=== PATIENT | female | born 1960 | race Caucasian/White ===

== ENCOUNTER 2020-02-23 14:22 | Outpatient (REF) | payer OTHER, SELFPAY | END 2020-02-23 14:23 | disposition home or self-care (01) | LOC: HO.LAB 14:22 | PROVIDERS: Visit Provider Internal Medicine | DX: Z20.828 Contact with and (suspected) exposure to other viral communicable diseases (principal) | CPT/HCPCS: C9803; U0003 ==

== ENCOUNTER 2020-06-29 17:30 | Emergency (ER) | payer OTHER, SELFPAY ==
--- NOTE | ~2020-06-29 | XR_ITS ---
EXAMINATION: XR CHEST CLINICAL INFORMATION: Chest pain COMPARISON: Chest x-ray and left RIBS 02/28/2019 TECHNIQUE: Frontal view of the chest was obtained. 6:01 PM FINDINGS: No significant abnormality is noted involving the heart, lungs, mediastinum, bony thorax or soft tissues. XR/XR chest 1V IMPRESSION: Unremarkable examination.
[2020-06-29 17:45] VITALS: BP 169/71; PULSE 64; RESP 16; TEMP 36.7; O2SAT 100; BMI 27.3
--- NOTE | 2020-06-29 17:48 | ECG_ITS ---
Test Reason : CHEST PAIN Blood Pressure : / mmHG Vent. Rate : 065 BPM Atrial Rate : 065 BPM P-R Int : 148 ms QRS Dur : 076 ms QT Int : 414 ms P-R-T Axes : -03 -28 014 degrees QTc Int : 430 ms Normal sinus rhythm Minimal voltage criteria for LVH, may be normal variant Junctional ST depression, probably normal Borderline ECG When compared with ECG of 30-AUG-2015 22:46, No significant change was found Referred By: Generic ED Physician Electronically Signed By:MASOUD CESAR MD
[2020-06-29 18:19] LABS: MANUAL DIFF FLAG NO
[2020-06-29 18:22] LABS: Basophils Absolute Auto 0.1 X10*3/uL (0.0-0.2); Basophils Percent Auto 0.9 % (0-2); Eosinophils Absolute Auto 0.5 X10*3/uL (0.0-0.4); Eosinophils Percent Auto 6.1 % (0-4); Hematocrit 37.1 % (37-47); Hemoglobin 11.6 g/dl (12.0-16.0); Imm Gran Abs Auto 0.01 X10*3/uL (0.00-0.03); Imm Gran Pct Auto 0.1 % (0.0-0.4); Lymphocytes Absolute Auto 3.8 X10*3/uL (1.2-4.9); Lymphocytes Percent Auto 44.2 % (20-40); Mean Corpuscular HGB Conc 31.3 g/dl (31.0-35.0); Mean Corpuscular Hemoglobin 25.1 pg (27.0-33.0); Mean Corpuscular Volume 80.3 fL (80-98); Mean Platelet Volume 9.7 fL (9.4-12.3); Monocytes Absolute Auto 0.6 X10*3/uL (0.1-1.2); Monocytes Percent Auto 7.2 % (2-11); Neutrophils Absolute Auto 3.6 X10*3/uL (2.0-8.3); Neutrophils Percent Auto 41.5 % (45-73); Platelet Count 300 X10*3/uL (160-400); Red Blood Count 4.62 X10*6/uL (4.20-5.50); Red Cell Distribution Width 13.8 % (11.0-16.0); White Blood Count 8.6 X10*3/uL (4.8-10.8)
[2020-06-29 18:43] LABS: Anion Gap 10 (12-20); Blood Urea Nitrogen 16 mg/dL (9-16); Calcium 9.4 mg/dL (8.4-10.2); Carbon Dioxide 30 mmol/L (22-29); Chloride 105 mmol/L (96-108); Creatinine Clr Calc Pharmacy 70.7; Estimated Glomerular Filt Rate > 60; Glucose Random 97 mg/dL (60-115); Potassium 3.3 mmol/L (3.3-5.1); Sodium 142 mmol/L (135-145)
[2020-06-29 18:50] LABS: Troponin-I High Sensitivity < 3.5 ng/L (<3.5-17.0)
[2020-06-29 20:47] VITALS: BP 167/82; PULSE 58; RESP 18; TEMP 36.5; O2SAT 100
--- NOTE | 2020-06-29 21:36 | ED.CHESTPAIN ---
HPI - Chest Pain General Chief Complaint: Chest Pain Stated Complaint: cp Time Seen by Provider: 06/29/20 21:36 Source: patient Mode of arrival: ambulatory Limitations: no limitations History of Present Illness HPI narrative: Patient with history of hypertension no known coronary artery disease been complaining of mid chest pain for last 10 days complaint: chest pain Timing of current episode: episodic Prior episodes: No Onset: during rest Pain location: substernal Pain radiation: none Severity: mild Quality: aching Relieving factors: nothing Exacerbating factors: palpation Treatment prior to arrival: none Related Data Previous Rx's Medication Instructions Recorded ascorbic acid (vitamin C) 500 mg 500 mg PO DAILY #30 tab 03/09/20 tablet ferrous sulfate 325 mg (65 mg 325 mg PO DAILY #30 tab 04/21/20 iron) tablet hydrochlorothiazide 12.5 mg tablet 12.5 mg PO DAILY #30 tab 04/21/20 Allergies Allergy/AdvReac Type Severity Reaction Status Date / Time No Known Allergies Allergy Unverified 12/29/19 14:56 [No Known Allergies*] Review of Systems Review of Systems: Constitutional : No Weight loss, No Fever, No Chills ENT/Mouth : No sore throat, No Rhinorrhea Eyes: No Eye Pain, No Swelling Cardiovascular : ++ Chest Pain, no palpitations Respiratory : No Cough, No Sputum, no shortness of breath Gastrointestinal : no Nausea, No Vomiting, No Diarrhea, No abdominal Pain, no black stools Genitourinary : No Dysuria, No Urinary Frequency Musculoskeletal : No joint pain, No Myalgias, No Joint Swelling Skin : No Skin Lesions, No rash Neuro : No Weakness, No Numbness, No Dizziness, No Headache Psych : No Anxiety/Panic, No Depression Heme/Lymph: No Bruising, No Lymphadenopathy Endocrine : No Polyuria, No Polydipsia All other systems reviewed and are negative PMFSH Past Medical History Medical History Anemia HTN (hypertension) Social History Social History Advance Directives: No Advance Directives Information Provided: Yes Physical Exam Vital Signs: Vital Signs: Last Vital Signs Temp 97.7 F 06/29/20 20:47 Pulse 58 06/29/20 20:47 Resp 18 06/29/20 20:47 BP 167/82 H 06/29/20 20:47 Pulse Ox 100 06/29/20 20:47 Body Mass Index 27.3 Appearance: Alert. Oriented X3. No acute distress. Eyes: Pupils equal, round and reactive to light. ENT: Pharynx normal. Neck: Normal inspection. Neck supple. CVS: Normal heart rate and rhythm. Pulses normal. Chest wall tenderness++ Respiratory: No respiratory distress. Breath sounds normal. Abdomen: Soft and nontender. Bowel sounds are present, no mass palpable, no CVA tenderness Skin: Skin warm and dry. Normal skin color. Normal skin turgor. Extremities: No lower extremity edema. Neuro: Oriented X 3. No motor deficit. No sensory deficit. MDM - Chest Pain MDM Narrative Medical decision making narrative: Patient atypical chest pain for more than 10 days EKG without any acute ST T wave changes pain reproducible on palpation high sensitive troponin is negative patient was to follow with PCP for evaluation Differential Diagnosis Differential diagnosis: Likely unstable angina pectoris and atypical chest pain Medical Records Data Attestation: I reviewed the patient's medical records. Lab Data Attestation: I reviewed the patient's lab results. Result diagrams: 06/29/20 18:10 06/29/20 18:10 Labs: Lab Results 06/29/20 06/29/20 06/29/20 Range/Units 18:10 18:10 18:10 WBC 8.6 (4.8-10.8) X10*3/uL RBC 4.62 (4.20-5.50) X10*6/uL Hgb 11.6 L (12.0-16.0) g/dl Hct 37.1 (37-47) % MCV 80.3 (80-98) fL MCH 25.1 L (27.0-33.0) pg MCHC 31.3 (31.0-35.0) g/dl RDW 13.8 (11.0-16.0) % Plt Count 300 (160-400) X10*3/uL MPV 9.7 (9.4-12.3) fL Immature Gran % (Auto) 0.1 (0.0-0.4) % Neut % (Auto) 41.5 L (45-73) % Lymph % (Auto) 44.2 H (20-40) % [place] % (Auto) 7.2 (2-11) % Eos % (Auto) 6.1 H (0-4) % Baso % (Auto) 0.9 (0-2) % Lymph # (Auto) 3.8 (1.2-4.9) X10*3/uL [place] # (Auto) 0.6 (0.1-1.2) X10*3/uL Eos # (Auto) 0.5 H (0.0-0.4) X10*3/uL Baso # (Auto) 0.1 (0.0-0.2) X10*3/uL Abs Immat Gran (auto) 0.01 (0.00-0.03) X10*3/uL Absolute Neuts (auto) 3.6 (2.0-8.3) X10*3/uL Absolute Nucleated RBC 0.000 (0.0-0.012) X10*3/uL Nucleated RBC % (auto) 0.0 (0.0-0.2) /100WBC Hold Blue Top SEE NOTE Sodium 142 (135-145) mmol/L Potassium 3.3 (3.3-5.1) mmol/L Chloride 105 (96-108) mmol/L Carbon Dioxide 30 H (22-29) mmol/L Anion Gap 10 L (12-20) BUN 16 (9-16) mg/dL Creatinine 0.73 (0.5-1.4) mg/dL Estim Creat Clear Calc 70.7 Estimated GFR > 60 Random Glucose 97 (60-115) mg/dL Calcium 9.4 (8.4-10.2) mg/dL Troponin I High Sens (<3.5-17.0) ng/L 06/29/20 Range/Units 18:10 WBC (4.8-10.8) X10*3/uL RBC (4.20-5.50) X10*6/uL Hgb (12.0-16.0) g/dl Hct (37-47) % MCV (80-98) fL MCH (27.0-33.0) pg MCHC (31.0-35.0) g/dl RDW (11.0-16.0) % Plt Count (160-400) X10*3/uL MPV (9.4-12.3) fL Immature Gran % (Auto) (0.0-0.4) % Neut % (Auto) (45-73) % Lymph % (Auto) (20-40) % [place] % (Auto) (2-11) % Eos % (Auto) (0-4) % Baso % (Auto) (0-2) % Lymph # (Auto) (1.2-4.9) X10*3/uL [place] # (Auto) (0.1-1.2) X10*3/uL Eos # (Auto) (0.0-0.4) X10*3/uL Baso # (Auto) (0.0-0.2) X10*3/uL Abs Immat Gran (auto) (0.00-0.03) X10*3/uL Absolute Neuts (auto) (2.0-8.3) X10*3/uL Absolute Nucleated RBC (0.0-0.012) X10*3/uL Nucleated RBC % (auto) (0.0-0.2) /100WBC Hold Blue Top Sodium (135-145) mmol/L Potassium (3.3-5.1) mmol/L Chloride (96-108) mmol/L Carbon Dioxide (22-29) mmol/L Anion Gap (12-20) BUN (9-16) mg/dL Creatinine (0.5-1.4) mg/dL Estim Creat Clear Calc Estimated GFR Random Glucose (60-115) mg/dL Calcium (8.4-10.2) mg/dL Troponin I High Sens < 3.5 (<3.5-17.0) ng/L ECG Data ECG #1: Attestation: I personally reviewed and interpreted this ECG as follows: Interpretation: Normal sinus rhythm heart rate 65 beats per minute normal intervals normal axis LVH no acute ST T wave changes no acute ischemia Discharge Plan Discharge Clinical Impression: Atypical chest pain Patient Disposition: Home, Self-Care Instructions: Chest Pain (ED) Additional Instructions: Take baby aspirin 81 mg daily Follow-up with your PCP for further evaluation including stress test Prescriptions: No Action ascorbic acid (vitamin C) [Vitamin C] 500 mg tablet 500 mg PO DAILY Qty: 30 RF: 5 hydrochlorothiazide 12.5 mg tablet 12.5 mg PO DAILY Qty: 30 RF: 5 ferrous sulfate 325 mg (65 mg iron) tablet 325 mg PO DAILY Qty: 30 RF: 5
== END 2020-06-29 22:10 | disposition home or self-care (01) ==
PROVIDERS: Emergency Provider Internal Medicine; PCP Internal Medicine
DX: R07.89 Other chest pain (principal); I10 Essential (primary) hypertension; Z79.899 Other long term (current) drug therapy
CPT/HCPCS: 36415; 71045; 80048; 84484; 85025; 93005; 99283; 99284

== ENCOUNTER → 2020-07-19 10:05 | Outpatient (REF) | payer OTHER, SELFPAY ==
--- NOTE | 2020-07-19 10:07 | CA_ITS ---
Acquisition Time: 2020-07-19 10:22:06 Total Exercise Time: 00:05:00 Test Indications: HTN Medications: SEE CHART Protocol: NITA Max HR: 155 BPM 95% of Pred: 163 BPM Max BP: 158/100 mmHG Max Work Load: 7.0 METS Exercise stress test with exercise 5 min of Nita protocol, without anginal symptoms, without arrythmia, with normotensive response to exercise, without EKG changes meeting criteria for ischemia. Test reviewed with Dr Garza. Referred By: Han Marcano Overread By: KEN DAVIS
== END ==
LOC: HO.CARD 10:05
PROVIDERS: Visit Provider Internal Medicine
DX: R07.89 Other chest pain (principal)
CPT/HCPCS: 93016; 93017; 93018

== ENCOUNTER 2020-08-06 11:35 | Outpatient (REF) | payer OTHER, SELFPAY ==
[2020-08-06 13:01] LABS: COVID-19 Test Negative (Negative); IDNOW Serial# 55D5AD1C
== END 2020-08-06 11:36 | disposition home or self-care (01) ==
LOC: HO.LAB 11:35
PROVIDERS: Visit Provider Internal Medicine
DX: Z20.822 Contact with and (suspected) exposure to COVID-19 (principal)
CPT/HCPCS: 36415; 87635; C9803

== ENCOUNTER 2020-09-29 09:52 | Outpatient (REF) | payer OTHER, SELFPAY ==
--- NOTE | ~2020-09-29 | XR_ITS ---
EXAMINATION: XR FOOT, RIGHT CLINICAL INFORMATION: Pain right foot. COMPARISON: None TECHNIQUE: AP, lateral, and oblique views of the right foot. FINDINGS: There is a transverse fracture across the head of the proximal phalanx of the fifth toe with no intra-articular extension. Alignment is essentially anatomic. Callus formation is present. No other abnormality. XR/XR foot RT min 3V IMPRESSION: Healing fracture proximal phalanx right fifth toe in near-anatomic alignment.
--- NOTE | ~2020-09-29 | MM_ITS ---
EXAMINATION: MM SCREENING DIGITAL BREAST TOMOSYNTHESIS, BILATERAL CLINICAL INFORMATION: Screening. Asymptomatic. The lifetime risk of breast cancer based on the Tyrer-Cuzick Model is 6%. COMPARISON: Mammography: 05/25/2019, 05/20/2019, 05/14/2018, 03/28/2014 TECHNIQUE: Digital breast tomosynthesis is performed in both the craniocaudal and mediolateral oblique views along with computer-aided detection (CAD). Synthesized 2D images are generated from the tomosynthesis. FINDINGS: There are scattered areas of fibroglandular density (ACR BI-RADS breast composition Category b). There are no significant masses, abnormal calcifications, or other abnormalities. Parenchymal pattern is similar to prior studies. No developing density. No significant changes. MM/MM tomosynthesis screening BI IMPRESSION: No mammographic evidence of malignancy. ASSESSMENT: BI-RADS 1: Negative RECOMMENDATION: Routine annual mammography screening. This patient's information was entered into a reminder system with a target due date for their next mammogram.
[2020-09-29 11:00] LABS: MANUAL DIFF FLAG NO
[2020-09-29 11:04] LABS: Basophils Absolute Auto 0.1 X10*3/uL (0.0-0.2); Basophils Percent Auto 0.8 % (0-2); Eosinophils Absolute Auto 0.5 X10*3/uL (0.0-0.4); Eosinophils Percent Auto 6.7 % (0-4); Hematocrit 36.5 % (37-47); Hemoglobin 11.6 g/dl (12.0-16.0); Imm Gran Abs Auto 0.01 X10*3/uL (0.00-0.03); Imm Gran Pct Auto 0.1 % (0.0-0.4); Immature Retic Fraction 3.2 % (3.0-15.9); Lymphocytes Absolute Auto 2.4 X10*3/uL (1.2-4.9); Lymphocytes Percent Auto 33.6 % (20-40); Mean Corpuscular HGB Conc 31.8 g/dl (31.0-35.0); Mean Corpuscular Hemoglobin 25.2 pg (27.0-33.0); Mean Corpuscular Volume 79.3 fL (80-98); Mean Platelet Volume 9.9 fL (9.4-12.3); Monocytes Absolute Auto 0.5 X10*3/uL (0.1-1.2); Monocytes Percent Auto 6.9 % (2-11); Neutrophils Absolute Auto 3.8 X10*3/uL (2.0-8.3); Neutrophils Percent Auto 51.9 % (45-73); Platelet Count 286 X10*3/uL (160-400); Red Cell Distribution Width 14.5 % (11.0-16.0); Retic HGB Equivalent 28.9 pg (30.0-35.0); Reticulocytes Absolute 0.045 X10*6/uL (0.026-0.095); White Blood Count 7.3 X10*3/uL (4.8-10.8)
[2020-09-29 11:26] LABS: Alanine Aminotransferase 13 U/L (0-31); Albumin Level 4.1 g/dL (3.5-5.0); Alkaline Phosphatase 79 U/L (39-117); Anion Gap 11 (12-20); Aspartate Amino Transferase 23 U/L (5-31); Bilirubin Total 0.5 mg/dL (0.0-1.0); Blood Urea Nitrogen 14 mg/dL (9-16); Calcium 9.6 mg/dL (8.4-10.2); Carbon Dioxide 27 mmol/L (22-29); Chloride 109 mmol/L (96-108); Cholesterol 229 mg/dL; Estimated Glomerular Filt Rate > 60; Glucose Random 87 mg/dL (60-115); HDL Cholesterol 72 mg/dL; Iron 56 mcg/dL (30-160); LDL Cholesterol Calculated 145 mg/dl; Percent Iron Saturation 22 % (15-50); Potassium 4.2 mmol/L (3.3-5.1); Sodium 143 mmol/L (135-145); Total Iron Binding Capacity 256 mcg/dL (228-428); Total Protein 7.2 g/dL (6.5-8.0); Triglycerides 62 mg/dL; Unsaturated Iron Binding 200 ug/dL
[2020-09-29 11:51] LABS: Thyroid Stimulating Hormone 1.66 uIU/mL (0.32-4.0); Vitamin D 25-OH Total 15.5 ng/mL (>30)
[2020-09-29 12:29] LABS: Ferritin 165 ng/mL (10-250)
[2020-10-01 09:07] LABS: Folate 15.6 ng/mL (> or = 4.0); Vitamin B12 365 pg/mL (200-900)
== END 2020-09-29 09:53 | disposition home or self-care (01) ==
LOC: HO.MAMMO 09:52
PROVIDERS: PCP Internal Medicine; Visit Provider Internal Medicine
DX: Z12.31 Encounter for screening mammogram for malignant neoplasm of breast (principal); M79.674 Pain in right toe(s); D64.9 Anemia, unspecified; E78.00 Pure hypercholesterolemia, unspecified; I10 Essential (primary) hypertension
CPT/HCPCS: 36415; 73630; 77063; 77067; 80053; 80061; 82306; 82607; 82728; 82746; 83540; 84439; 84443; 85025; 85045

== ENCOUNTER → 2020-10-18 10:59 | Outpatient (BNVA) | payer OTHER, SELFPAY | PROVIDERS: PCP Internal Medicine; Visit Provider Dietitian, Registered | DX: E78.00 Pure hypercholesterolemia, unspecified (principal) | CPT/HCPCS: 97802 ==

== ENCOUNTER → 2020-11-29 09:13 | Outpatient (BNVA) | payer OTHER, SELFPAY | PROVIDERS: PCP Internal Medicine; Visit Provider Dietitian, Registered | DX: E78.00 Pure hypercholesterolemia, unspecified (principal); I10 Essential (primary) hypertension; D50.9 Iron deficiency anemia, unspecified; F41.8 Other specified anxiety disorders | CPT/HCPCS: 97803 ==

== ENCOUNTER 2020-12-17 11:05 | Emergency (ER) | payer OTHER, SELFPAY ==
--- NOTE | ~2020-12-17 | XR_ITS ---
EXAMINATION: XR SHOULDER, LEFT CLINICAL INFORMATION: Shoulder pain COMPARISON: X-ray 04/22/2013 TECHNIQUE: Three views of the left shoulder. FINDINGS: No visible acute fracture or dislocation. Mild to moderate acromioclavicular arthritis. Glenohumeral joint space is maintained. No abnormal soft tissue calcifications. XR/XR shoulder LT min 2V IMPRESSION: Mild to moderate acromioclavicular arthritis. No visible acute fracture.
[2020-12-17 11:25] VITALS: BP 173/80; PULSE 76; RESP 16; TEMP 36.6; O2SAT 97; BMI 27.3
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
[2020-12-17] MEDS: Ketorolac Tromethamine 15 MG/ML VIAL 30 MG IM (14:47)
[2020-12-17 15:03] VITALS: BP 152/88; PULSE 76; RESP 16; TEMP 36.6; O2SAT 98
== END 2020-12-17 15:06 | disposition home or self-care (01) ==
PROVIDERS: Emergency Provider Emergency Medicine; PCP Internal Medicine
DX: M75.02 Adhesive capsulitis of left shoulder (principal); M25.512 Pain in left shoulder; I10 Essential (primary) hypertension; E78.00 Pure hypercholesterolemia, unspecified; Z79.899 Other long term (current) drug therapy; Z79.82 Long term (current) use of aspirin
CPT/HCPCS: 73030; 96372; 99284; J1885

== ENCOUNTER → 2020-12-25 14:38 | Outpatient (BNVA) | payer OTHER, SELFPAY | PROVIDERS: Visit Provider Physician Assistant | DX: M75.102 Unspecified rotator cuff tear or rupture of left shoulder, not specified as traumatic (principal) | CPT/HCPCS: 99202 ==

== ENCOUNTER 2021-02-22 14:58 | Outpatient (REF) | payer OTHER, SELFPAY | END 2021-02-22 14:59 | disposition home or self-care (01) | LOC: HO.LNP 14:58 | PROVIDERS: Visit Provider Physician Assistant Medical | DX: R51.9 Headache, unspecified (principal); Z20.822 Contact with and (suspected) exposure to COVID-19 | CPT/HCPCS: U0003; U0005 ==

== ENCOUNTER → 2021-02-28 09:01 | Outpatient (BNVA) | payer OTHER, SELFPAY | PROVIDERS: Visit Provider Dietitian, Registered | DX: E78.00 Pure hypercholesterolemia, unspecified (principal) | CPT/HCPCS: 97803 ==

== ENCOUNTER 2021-03-13 18:04 | Outpatient (REF) | payer OTHER, SELFPAY ==
[2021-03-13 18:55] LABS: Influenza A PCR NEGATIVE (Negative); Influenza B PCR NEGATIVE (Negative); Resp Syncy Virus RNA Qual PCR NEGATIVE (Negative); SARS COV2 PCR INHOUSE NEGATIVE (Negative)
== END 2021-03-13 18:05 | disposition home or self-care (01) ==
LOC: HO.LNP 18:04
PROVIDERS: Visit Provider Family Medicine
DX: Z20.822 Contact with and (suspected) exposure to COVID-19 (principal); B34.9 Viral infection, unspecified
CPT/HCPCS: 0241U

== ENCOUNTER 2021-04-15 10:45 | Outpatient (REF) | payer OTHER, SELFPAY | END 2021-04-15 10:46 | disposition home or self-care (01) | LOC: HO.WFDLDS 10:45 | PROVIDERS: Visit Provider Internal Medicine | DX: Z20.822 Contact with and (suspected) exposure to COVID-19 (principal) | CPT/HCPCS: C9803; U0003; U0005 ==

== ENCOUNTER 2021-04-22 18:03 | Outpatient (REF) | payer OTHER, SELFPAY | END 2021-04-22 18:04 | disposition home or self-care (01) | LOC: HO.LNP 18:03 | PROVIDERS: Visit Provider Hospitalist | DX: R51.9 Headache, unspecified (principal); Z20.822 Contact with and (suspected) exposure to COVID-19 | CPT/HCPCS: U0003; U0005 ==

== ENCOUNTER → 2021-05-09 15:01 | Outpatient (BNVA) | payer OTHER, SELFPAY | PROVIDERS: PCP Internal Medicine; Referring Provider Internal Medicine; Visit Provider Nurse Practitioner Family | DX: Z01.818 Encounter for other preprocedural examination (principal); K21.9 Gastro-esophageal reflux disease without esophagitis | CPT/HCPCS: 99202 ==

== ENCOUNTER 2021-10-10 11:27 | Outpatient (REF) | payer OTHER, SELFPAY ==
[2021-10-10 11:39] LABS: MANUAL DIFF FLAG NO
[2021-10-10 12:11] LABS: Basophils Absolute Auto 0.1 X10*3/uL (0.0-0.2); Basophils Percent Auto 0.9 % (0-2); Eosinophils Absolute Auto 0.3 X10*3/uL (0.0-0.4); Eosinophils Percent Auto 4.9 % (0-4); Hematocrit 36.4 % (37.0-47.0); Hemoglobin 11.4 g/dl (12.0-16.0); Imm Gran Abs Auto 0.02 X10*3/uL (0.00-0.03); Imm Gran Pct Auto 0.3 % (0.0-0.4); Immature Retic Fraction 5.4 % (3.0-15.9); Lymphocytes Absolute Auto 2.5 X10*3/uL (1.2-4.9); Lymphocytes Percent Auto 35.3 % (20-40); Mean Corpuscular HGB Conc 31.3 g/dl (31.0-35.0); Mean Corpuscular Hemoglobin 24.9 pg (27.0-33.0); Mean Corpuscular Volume 79.6 fL (80.0-98.0); Mean Platelet Volume 10.2 fL (9.4-12.3); Monocytes Absolute Auto 0.5 X10*3/uL (0.1-1.2); Monocytes Percent Auto 7.6 % (2-11); Neutrophils Absolute Auto 3.6 x10*3/uL (2.0-8.3); Platelet Count 297 X10*3/uL (160-400); Red Blood Count 4.57 X10*6/uL (4.20-5.50); Red Cell Distribution Width 14.6 % (11.0-16.0); Retic HGB Equivalent 29.5 pg (30.0-35.0); Reticulocyte Percent 1.2 % (0.5-1.8); Reticulocytes Absolute 0.055 X10*6/uL (0.026-0.095)
[2021-10-10 12:34] LABS: Alanine Aminotransferase 12 U/L (0-31); Albumin Level 4.1 g/dL (3.5-5.0); Alkaline Phosphatase 76 U/L (39-117); Anion Gap 12 (12-20); Aspartate Amino Transferase 19 U/L (5-31); Bilirubin Total 0.5 mg/dL (0.0-1.0); Blood Urea Nitrogen 12 mg/dL (9-16); Carbon Dioxide 26 mmol/L (22-29); Chloride 108 mmol/L (96-108); Cholesterol 227 mg/dL; Estimated Glomerular Filt Rate > 60; Glucose Random 84 mg/dL (60-115); HDL Cholesterol 64 mg/dL; Iron 106 mcg/dL (30-160); LDL Cholesterol Calculated 152 mg/dl; Percent Iron Saturation 43 % (15-50); Potassium 4.2 mmol/L (3.3-5.1); Sodium 142 mmol/L (135-145); Total Iron Binding Capacity 246 mcg/dL (228-428); Total Protein 7.1 g/dL (6.5-8.0); Triglycerides 55 mg/dL; Unsaturated Iron Binding 140 ug/dL
[2021-10-10 12:57] LABS: Ferritin 244 ng/mL (10-250); Thyroid Stimulating Hormone 1.82 uIU/mL (0.32-4.0); Vitamin D 25-OH Total 15.4 ng/mL (>30)
[2021-10-10 13:20] LABS: Folate 18.7 ng/mL (> or = 4.0); Vitamin B12 432 pg/mL (200-900)
== END 2021-10-10 11:28 | disposition home or self-care (01) ==
LOC: HO.LAB 11:27
PROVIDERS: PCP Internal Medicine; Visit Provider Internal Medicine
DX: D64.9 Anemia, unspecified (principal); E78.00 Pure hypercholesterolemia, unspecified; I10 Essential (primary) hypertension; Z20.822 Contact with and (suspected) exposure to COVID-19
CPT/HCPCS: 36415; 80053; 80061; 82306; 82607; 82728; 82746; 83540; 84439; 84443; 85025; 85045; U0005

== ENCOUNTER 2021-10-17 10:50 | Outpatient (REF) | payer OTHER, SELFPAY ==
--- NOTE | ~2021-10-17 | MM_ITS ---
EXAMINATION: MM SCREENING DIGITAL BREAST TOMOSYNTHESIS, BILATERAL CLINICAL INFORMATION: Screening. Asymptomatic. The lifetime risk of breast cancer based on the Tyrer-Cuzick Model is 6%. COMPARISON: Mammography: 09/29/2020, 05/25/2019, 05/20/2019, 05/14/2018; ultrasound left breast 05/25/2019 TECHNIQUE: Digital breast tomosynthesis is performed in both the craniocaudal and mediolateral oblique views along with computer-aided detection (CAD). Synthesized 2D images are generated from the tomosynthesis. FINDINGS: There are scattered areas of fibroglandular density (ACR BI-RADS breast composition Category b). There are no significant masses, abnormal calcifications, or other abnormalities. Parenchymal pattern is similar to prior studies. No developing density or architectural abnormality. MM/MM tomosynthesis screening BI IMPRESSION: No mammographic evidence of malignancy. ASSESSMENT: BI-RADS 1: Negative RECOMMENDATION: Routine annual mammography screening. This patient's information was entered into a reminder system with a target due date for their next mammogram.
== END 2021-10-17 10:51 | disposition home or self-care (01) ==
LOC: HO.MAMMO 10:50
PROVIDERS: Visit Provider Internal Medicine
DX: Z12.31 Encounter for screening mammogram for malignant neoplasm of breast (principal)
CPT/HCPCS: 77063; 77067

== ENCOUNTER 2022-03-18 12:04 | Outpatient (REF) | payer OTHER, SELFPAY ==
[2022-03-18 15:11] LABS: Influenza A PCR NEGATIVE (Negative); Influenza B PCR NEGATIVE (Negative); Resp Syncy Virus RNA Qual PCR NEGATIVE (Negative); SARS COV2 PCR INHOUSE POSITIVE (Negative)
== END 2022-03-18 12:05 | disposition home or self-care (01) ==
LOC: HO.LAB 12:04
PROVIDERS: Visit Provider Nurse Practitioner Family
DX: Z20.822 Contact with and (suspected) exposure to COVID-19 (principal); B34.9 Viral infection, unspecified
CPT/HCPCS: 0241U

== ENCOUNTER → 2022-04-02 14:34 | Outpatient (BNVA) | payer OTHER, SELFPAY | PROVIDERS: PCP Internal Medicine; Visit Provider Nurse Practitioner Family | DX: Z01.818 Encounter for other preprocedural examination (principal) | CPT/HCPCS: 99212 ==

== ENCOUNTER 2022-05-15 10:42 | Outpatient (REF) | payer OTHER, SELFPAY ==
[2022-05-15 10:52] LABS: MANUAL DIFF FLAG NO
[2022-05-15 11:50] LABS: Basophils Absolute Auto 0.1 X10*3/uL (0.0-0.2); Basophils Percent Auto 1.2 % (0-2); Eosinophils Absolute Auto 0.4 X10*3/uL (0.0-0.4); Eosinophils Percent Auto 5.6 % (0-4); Hematocrit 40.4 % (37.0-47.0); Hemoglobin 12.8 g/dl (12.0-16.0); Imm Gran Abs Auto 0.02 X10*3/uL (0.00-0.03); Imm Gran Pct Auto 0.3 % (0.0-0.4); Immature Retic Fraction 4.5 % (3.0-15.9); Lymphocytes Absolute Auto 2.6 X10*3/uL (1.2-4.9); Lymphocytes Percent Auto 33.7 % (20-40); Mean Corpuscular HGB Conc 31.7 g/dl (31.0-35.0); Mean Corpuscular Hemoglobin 25.5 pg (27.0-33.0); Mean Corpuscular Volume 80.6 fL (80.0-98.0); Mean Platelet Volume 10.5 fL (9.4-12.3); Monocytes Absolute Auto 0.6 X10*3/uL (0.1-1.2); Monocytes Percent Auto 8.1 % (2-11); Neutrophils Percent Auto 51.1 % (45-73); Platelet Count 308 X10*3/uL (160-400); Red Blood Count 5.01 X10*6/uL (4.20-5.50); Red Cell Distribution Width 13.9 % (11.0-16.0); Reticulocyte Percent 0.8 % (0.5-1.8); Reticulocytes Absolute 0.039 X10*6/uL (0.026-0.095); White Blood Count 7.8 X10*3/uL (4.8-10.8)
[2022-05-15 12:22] LABS: Alanine Aminotransferase 11 U/L (0-31); Albumin Level 4.4 g/dL (3.5-5.0); Alkaline Phosphatase 82 U/L (39-117); Anion Gap 12 (12-20); Aspartate Amino Transferase 19 U/L (5-31); Bilirubin Total 0.5 mg/dL (0.0-1.0); Blood Urea Nitrogen 11 mg/dL (9-16); Carbon Dioxide 28 mmol/L (22-29); Chloride 108 mmol/L (96-108); Cholesterol 247 mg/dL; Estimated Glomerular Filt Rate > 60; Glucose Random 82 mg/dL (60-115); HDL Cholesterol 62 mg/dL; Iron 108 mcg/dL (30-160); LDL Cholesterol Calculated 170 mg/dl; Percent Iron Saturation 49 % (15-50); Sodium 144 mmol/L (135-145); Total Iron Binding Capacity 222 mcg/dL (228-428); Total Protein 7.5 g/dL (6.5-8.0); Triglycerides 75 mg/dL; Unsaturated Iron Binding 114 ug/dL
[2022-05-15 12:39] LABS: Ferritin 311 ng/mL (10-250); Folate 14.8 ng/mL (> or = 4.0); Vitamin B12 537 pg/mL (200-900)
== END 2022-05-15 10:43 | disposition home or self-care (01) ==
LOC: HO.LAB 10:42
PROVIDERS: PCP Internal Medicine; Visit Provider Internal Medicine
DX: E78.00 Pure hypercholesterolemia, unspecified (principal)
CPT/HCPCS: 36415; 80053; 80061; 82607; 82728; 82746; 83540; 85025; 85045

== ENCOUNTER → 2022-08-07 09:45 | Outpatient (BNVA) | payer OTHER, SELFPAY | PROVIDERS: PCP Internal Medicine; Referring Provider Internal Medicine; Visit Provider Internal Medicine Cardiovascular Disease | DX: R07.9 Chest pain, unspecified (principal); I10 Essential (primary) hypertension | CPT/HCPCS: 93005; 99202 ==

== ENCOUNTER 2022-11-20 10:53 | Outpatient (AMB) | payer OTHER, SELFPAY ==
[2022-11-20 11:13] VITALS: BP 158/80; PULSE 76; O2SAT 98; BMI 23.2
--- NOTE | 2022-11-20 11:13 | MHC.PC.OV ---
Vital Signs 11/20/22 11:13 Height 5 ft Weight 119 lb BMI 23.2 BP 158/80 H Blood Pressure Location Lt brachial Position Sitting Pulse 76 Pulse Source Pulse Oximeter Pulse Oximetry (%) 98 Oxygen Delivery Method Room Air Intake Visit Reasons: 4 MONTH, bilateral heel pain, right foot pain Allergies No Known Allergies [No Known Allergies*] Allergy (Verified 11/20/22 11:13) Medication List - Last Reconciled 11/20/22 by Han Marcano MD ascorbic acid (vitamin C) (Vitamin C) 500 mg PO DAILY blood pressure monitor (Blood Pressure Kit) As directed ferrous sulfate 325 mg PO DAILY lisinopril 5 mg PO DAILY polyethylene glycol 3350 (Miralax) 238 grams PO ONCE Tobacco use date assessed: 05/15/22 Dental Screening Dental Screen Date: 11/20/22 Did you have a dental visit in the last 12 months?: Yes Did you have a dental problem in the last 6 months where you did not have access to dental care?: No Was dental information given to patient?: Patient has dentist HPI 4 MONTH HPI Details 61-year-old female with hypercholesterolemia hypertension GERD last seen in August 2022. Patient was started on cholesterol medication patient's colonoscopy is up-to-date mammogram is due. cholesterol med did not take it -to its check the blood work today and see. Patient has not done the blood work. Patient also complains of l bilateral heel pain not as painful today but does get it intermittently. Patient also has some pain on the dorsum of the foot and denies any fall or trauma. Patient has a question regarding the nail and also has a blister on the side of the toe on the left foot otherwise does not check the blood pressure at home noted weight loss. [facility] Medical History Allergic rhinitis Anemia Anxiety and depression Cataract Chest pain Closed left ankle fracture Colon cancer screening Exposure to COVID-19 virus GERD (gastroesophageal reflux disease) Headache Hearing impaired Hearing loss HTN (hypertension) Hypokalemia Iron deficiency anemia Special needs due to hearing impairment of right ear Surgical History History of section Hx of colonoscopy Family History Brother Colon cancer Father Myocardial infarct Father Hypertension CVD (cardiovascular disease) Mother Hypertension Sister Aneurysm Brother Acute CVA (cerebrovascular accident) Son No problems noted. Son No problems noted. Daughter No problems noted. 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 1. Little interest or pleasure in doing things: not at all 2. Feeling down, depressed, or hopeless: more than half the days 3. Trouble falling or staying asleep, or sleeping too much: more than half the days 4. Feeling tired or having little energy: not at all 5. Poor appetite or overeating: not at all 6. Feeling bad about yourself - or that you are a failure or have let yourself or your family down: not at all 7. Trouble concentrating on things, such as reading the newspaper or watching television: not at all 8. Moving or speaking so slowly that other people could have noticed. Or the opposite - being so fidgety or restless that you have been moving around a lot more than usual: not at all 9. Thoughts that you would be better off or of hurting yourself in some way: not at all Total score: 4 Depression Screening Interpretation: Positive Source: Developed by Drs. Max Russell, Josie Milligan, Haroon Dumont and colleagues, with an educational gabino from [employer]. Thrive Questionnaire Date Thrive assessed: 05/15/22 AUDIT C Alcohol Use Questionnaire (AUDIT-C) 1. How often do you have a drink containing alcohol?: Monthly or less 2. How many drinks containing alcohol do you have on a typical day when you are drinking?: 1 or 2 3. How often do you have six or more drinks on one occasion?: Never Total Score: 1 JAVIER-7 AMB Questionnaire JAVIER-7 Date JAVIER - 7 assessed: 05/15/22 Source: Developed by DrsSosa Russell, Josie Milligan, Haroon Dumont and colleagues, with an educational gabino from [employer]. Physical exam (Primary Care) Vital Signs: Last Vital Signs Pulse 76 11/20/22 11:13 BP 158/80 H 11/20/22 11:13 Pulse Ox 98 11/20/22 11:13 Oxygen Delivery Method Room Air 11/20/22 11:13 Care Plan Goal for BP management: Tender on bilateral heel and noted some indentations 1 mm on the foot multiple but no ulcerations pulses are good tender on the heel as well as on the dorsum of foot noted thickened nail on a few toenails as well as on the left 4th toe lateral side callus noted BMI result Body Mass Index 23.2 Tobacco/Smoking Status: Tobacco use Status Tobacco use date assessed 05/15/22 11/20/22 11:14 Patient Tobacco Use Status Never used Tobacco 11/20/22 11:14 e-Cigarette/Vaping Use Never Used 11/20/22 11:14 PHQ-9: PHQ-9 Score PHQ-9: Total score 4 11/20/22 11:28 Depression Screening Interpretation: Positive Thrive Assessment: Date of Thrive Assessment Date Thrive assessed 05/15/22 11/20/22 11:14 Const General: alert; No acute distress Eyes Conjunctivae: conjunctivae normal Resp Auscultation: clear to auscultation bilaterally Cardio Rate: regular rate Rhythm: regular rhythm GI Inspection: Yes normal to inspection Extrem General: Yes normal to inspection and No edema Assessment and Plan Assessment & Plan (1) HTN (hypertension): Code(s): I10 - Essential (primary) hypertension Plan: Continue with blood pressure medication. Decrease salt intake and exercise patient is on lisinopril 5 mg once a day. Concern that the blood pressure is elevated and has been elevated multiple times already and office patient is advised to monitor blood pressure but will increase the lisinopril to 10 mg once a day (2) GERD (gastroesophageal reflux disease): Code(s): K21.9 - Gastro-esophageal reflux disease without esophagitis Qualifiers: Esophagitis presence: esophagitis presence not specified Qualified Code(s): K21.9 - Gastro-esophageal reflux disease without esophagitis Plan: Avoid the foods that causes that usually spicy foods, tomato products, juices, coffee, soda and foods that your sensitive to. After eating do not lie down, allow 3-4 hours before in lie down. And keep the head of bed above 30 degrees to avoid the acid from going up. (3) Hypercholesterolemia: Code(s): E78.00 - Pure hypercholesterolemia, unspecified Plan: Avoid fried foods, chicken skin, eggs, butter margarine, pastries and meat. Be it pork or beef they have a lot of cholesterol LDL goal of less than 130 and triglyceride of less than 150 blood work requested patient held off the medication and wants to retest today as she is fasting. (4) Plantar fasciitis: Code(s): M72.2 - Plantar fascial fibromatosis Plan: Information about plantar fasciitis given to the patient as well as taught about exercises (5) Onychomycosis: Code(s): B35.1 - Tinea unguium Plan: Discussed about treatment and will be seeing jet engine mechanic (6) Toe pain, left: Code(s): M79.675 - Pain in left toe(s) Plan: Podiatry referral done Orders: Referrals Nutrition/Dietitian Referral E78.00 - Pure hypercholesterolemia, unspecified Podiatry Referral B35.1 - Tinea unguium, M72.2 - Plantar fascial fibromatosis, M79.675 - Pain in left toe(s) Medications: Changed From lisinopril 5 mg PO DAILY 90 tabs 2RF I10 - Essential (primary) hypertension To lisinopril 10 mg PO DAILY 30 days 30 tabs 3RF I10 - Essential (primary) hypertension Discontinued simvastatin Discontinued Reason: Patient Refused 5 mg PO BEDTIME 30 tabs 3RF E78.00 - Pure hypercholesterolemia, unspecified Coding Level of Care Code Est Pt Level 4 (08182) Diagnoses HTN (hypertension) I10 GERD (gastroesophageal reflux disease) K21.9 Esophagitis presence: esophagitis presence not specified Hypercholesterolemia E78.00 Plantar fasciitis M72.2 Onychomycosis B35.1 Toe pain, left M79.675
== END 2022-11-20 11:49 | disposition home or self-care (01) ==
PROVIDERS: PCP Internal Medicine; Visit Provider Internal Medicine
DX: I10 Essential (primary) hypertension (principal); K21.9 Gastro-esophageal reflux disease without esophagitis; E78.00 Pure hypercholesterolemia, unspecified; M72.2 Plantar fascial fibromatosis; B35.1 Tinea unguium; M79.675 Pain in left toe(s)
CPT/HCPCS: 99214

== ENCOUNTER 2022-11-20 12:02 | Outpatient (REF) | payer OTHER, SELFPAY ==
[2022-11-20 13:38] LABS: MANUAL DIFF FLAG NO
[2022-11-20 14:02] LABS: Basophils Absolute Auto 0.1 X10*3/uL (0.0-0.2); Basophils Percent Auto 1.1 % (0-2); Eosinophils Absolute Auto 0.5 X10*3/uL (0.0-0.4); Eosinophils Percent Auto 6.3 % (0-4); Hematocrit 39.8 % (37.0-47.0); Hemoglobin 12.5 g/dl (12.0-16.0); Imm Gran Abs Auto 0.02 X10*3/uL (0.00-0.03); Imm Gran Pct Auto 0.3 % (0.0-0.4); Lymphocytes Absolute Auto 2.7 X10*3/uL (1.2-4.9); Lymphocytes Percent Auto 34.2 % (20-40); Mean Corpuscular HGB Conc 31.4 g/dl (31.0-35.0); Mean Corpuscular Hemoglobin 24.8 pg (27.0-33.0); Mean Platelet Volume 9.8 fL (9.4-12.3); Monocytes Absolute Auto 0.5 X10*3/uL (0.1-1.2); Monocytes Percent Auto 6.4 % (2-11); Neutrophils Absolute Auto 4.1 x10*3/uL (2.0-8.3); Neutrophils Percent Auto 51.7 % (45-73); Platelet Count 351 X10*3/uL (160-400); Red Blood Count 5.04 X10*6/uL (4.20-5.50); Red Cell Distribution Width 13.4 % (11.0-16.0)
[2022-11-20 15:04] LABS: Alanine Aminotransferase 10 U/L (0-31); Albumin Level 4.1 g/dL (3.5-5.0); Alkaline Phosphatase 78 U/L (39-117); Anion Gap 12 (12-20); Aspartate Amino Transferase 17 U/L (5-31); Bilirubin Total 0.3 mg/dL (0.0-1.0); Blood Urea Nitrogen 10 mg/dL (9-16); Calcium 10.1 mg/dL (8.4-10.2); Carbon Dioxide 27 mmol/L (22-29); Chloride 108 mmol/L (96-108); Cholesterol 237 mg/dL; Estimated Glomerular Filt Rate > 60; Glucose Random 74 mg/dL (60-115); HDL Cholesterol 61 mg/dL; LDL Cholesterol Calculated 160 mg/dl; Potassium 3.9 mmol/L (3.3-5.1); Sodium 143 mmol/L (135-145); Total Protein 7.9 g/dL (6.5-8.0); Triglycerides 81 mg/dL
[2022-11-20 15:09] LABS: Free T4 (Free Thyroxine) 1.06 ng/dL (0.71-1.85); Thyroid Stimulating Hormone 2.19 uIU/mL (0.32-4.0)
== END 2022-11-20 12:03 | disposition home or self-care (01) ==
LOC: HO.LAB 12:02
PROVIDERS: PCP Internal Medicine; Visit Provider Internal Medicine
DX: E78.00 Pure hypercholesterolemia, unspecified (principal)
CPT/HCPCS: 36415; 80053; 80061; 84439; 84443; 85025

== ENCOUNTER 2023-01-08 10:55 | Outpatient (AMB) | payer OTHER, SELFPAY ==
[2023-01-08 11:05] VITALS: BMI 24.2
--- NOTE | 2023-01-08 11:05 | A.OFFVIS_ITS ---
Intake VS Expanded 01/08/23 11:05 Height 5 ft Weight 124 lb 1.924 oz BMI 24.2 Intake Visit Reasons: hypercholesterolemia, voicemail Allergies No Known Allergies [No Known Allergies*] Allergy (Verified 11/20/22 11:13) HPI Nutrition Presentation Details Pt presents for MNT for pure hypercholesterolemia . Pt was referred by Dr. Marcano, primary care physician at [facility] Pt was last seen for hypercholesterolemia in 2020 Pt reports having no food allergies, chooses foods that are easy to prepare for self and adopted grandchildren (fries/nuggets, cereals) food frequency fruit: 0-1 non starchy vex/wk dairy: 7x/wk cheese mostly fish: not including, includes beef, poultry , pork , starches : starchy vegetables and starches > 15 serving/d beverages: water, coffee, soda physical activity : daily life activities ETOH/SMoking: denies XTY-Wffpsgx-Pi.Jeor Equation Height 5 ft Weight 124 lb Resting Metabolic Rate 1058.19 Calculated Activity Level Mild Activity Calories Needed to Maintain Weight 1455.01 Diagnosis Nutrition problem #1 food nutri know defi As related to (etiology) #1 diagnosis As evidenced by (sign/symptom) #1 knowledge deficit of diet Monitoring/Goals Monitoring/Goals details Low cholesterol and high fiber food choices Learning/Education Readiness to learn good Stages of change preparation Educational materials provided Yes (low cholesterol and high fiber food concept) Most Recent Diabetes Results: Cholesterol 237 mg/dL 11/20/22 HDL Cholesterol 61 mg/dL 11/20/22 Triglycerides 81 mg/dL 11/20/22 Creatinine 0.84 mg/dL (0.5-1.4) 11/20/22 Blood Urea Nitrogen 10 mg/dL (9-16) 11/20/22 Sodium 143 mmol/L (135-145) 11/20/22 Potassium 3.9 mmol/L (3.3-5.1) 11/20/22 Chloride 108 mmol/L (96-108) 11/20/22 Carbon Dioxide 27 mmol/L (22-29) 11/20/22 Calcium 10.1 mg/dL (8.4-10.2) 11/20/22 AST 17 U/L (5-31) 11/20/22 ALT 10 U/L (0-31) 11/20/22 Total Protein 7.9 g/dL (6.5-8.0) 11/20/22 Albumin 4.1 g/dL (3.5-5.0) 11/20/22 [facility] Medical History Allergic rhinitis Anemia Anxiety and depression Cataract Chest pain Closed left ankle fracture Colon cancer screening Exposure to COVID-19 virus GERD (gastroesophageal reflux disease) Headache Hearing impaired Hearing loss HTN (hypertension) Hypokalemia Iron deficiency anemia Special needs due to hearing impairment of right ear Surgical History History of section Hx of colonoscopy Family History Brother Colon cancer Father Myocardial infarct Father Hypertension CVD (cardiovascular disease) Mother Hypertension Sister Aneurysm Brother Acute CVA (cerebrovascular accident) Son No problems noted. Son No problems noted. Daughter No problems noted. 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[employer]) Current occupational exposures/hazards: No Cognitive needs: No Hearing needs: No Vision needs: Yes Assessment & Plan Assessment & Plan (1) Hypercholesterolemia: Code(s): E78.00 - Pure hypercholesterolemia, unspecified Plan: wt: 56 kg Est kcal needs as per MSJ: 1500 (40% carb, 30% protein/fat) Est fluid needs as per 30 ml/d: 1700 Est prot per day as per 1 g/kg bw: 56 Recommend fiber intake : 8-10 g per day and gradually increase to 25-28 g per day for women and 35-38 g for men or as tolerated Recommend sodium intake per day : less than 2000mg Educated patient on: ( R = reviewed V = verbalizes understanding N/R = needs review N/A = not applicable * Food sources of carbohydrate, adequate serving sizes and its role in various health conditions: NR * Differences between complex carbohydrates a simple carbohydrates, role of fiber in diet: R * Differences between types of fats and role in diet (mono on saturated fat fatty acids, saturated fatty acids, trans fats): R * Food sources of sodium in salt and healthy modifications for heart health in kidney health: NR * Healthy plate method concept: R * Physical activity: Benefits a precaution: R Patient Instructions: Continue working on reducing foods high in cholesterol (reduce on pastries/donuts and choose a fruit instead, reduce on frequency of high cholesterol deli meats, baked broil steam instead of frying- see list of low cholesterol food choices Include fiber rich foods , add broccoli/lettuce/spinach to your meals on a daily basis, to the sandwiches switch to whole wheat bread and choose whole grain foods in general (cheerios vs cornflakes as example) see meal plan for additional ideas Coding Level of Care Code Nutr Indiv Subseq (53702) Diagnoses Hypercholesterolemia E78.00 Time Spent (min) 30
[2023-01-14 11:46] VITALS: BMI 24.2
== END 2023-01-08 13:30 | disposition home or self-care (01) ==
PROVIDERS: PCP Internal Medicine; Visit Provider Dietitian, Registered
DX: E78.00 Pure hypercholesterolemia, unspecified (principal)

== ENCOUNTER → 2023-01-08 10:55 | Outpatient (BNVA) | payer OTHER, SELFPAY | PROVIDERS: PCP Internal Medicine; Visit Provider Dietitian, Registered | DX: E78.00 Pure hypercholesterolemia, unspecified (principal); Z71.3 Dietary counseling and surveillance | CPT/HCPCS: 97803 ==

== ENCOUNTER 2023-02-05 12:23 | Outpatient (AMB) | payer OTHER, SELFPAY ==
[2023-02-05 12:34] VITALS: BP 142/76; PULSE 71; O2SAT 98; BMI 24.0
--- NOTE | 2023-02-05 12:34 | MHC.PC.OV ---
Vital Signs 02/05/23 12:34 Height 5 ft Weight 123 lb BMI 24.0 BP 142/76 H Blood Pressure Location Lt brachial Position Sitting Pulse 71 Pulse Source Pulse Oximeter Pulse Oximetry (%) 98 Oxygen Delivery Method Room Air Intake Visit Reasons: Annual Exam+ NEEDS COMPLETE PHQ9+ THRIVE Allergies No Known Allergies [No Known Allergies*] Allergy (Verified 02/05/23 12:34) Medication List - Last Reconciled 02/05/23 by Han Marcano MD ascorbic acid (vitamin C) (Vitamin C) 500 mg PO DAILY blood pressure monitor (Blood Pressure Kit) As directed ferrous sulfate 325 mg PO DAILY lisinopril 10 mg PO DAILY polyethylene glycol 3350 (Miralax) 238 grams PO ONCE Tobacco use date assessed: 05/15/22 Dental Screening Dental Screen Date: 02/05/23 Did you have a dental visit in the last 12 months?: Yes Did you have a dental problem in the last 6 months where you did not have access to dental care?: No Was dental information given to patient?: Patient has dentist HPI Annual Exam+ NEEDS COMPLETE PHQ9+ THRIVE HPI Details 62-year-old female with hypertension GERD hypercholesterolemia last seen in November 2022. Blood pressure medication was adjusted at that time patient is up-to-date with colonoscopy mammogram is due R hearing loss decline hearing aid. colon test pending [facility] Medical History (Updated 02/05/23 @ 12:49 by Han Marcano MD) Hearing loss Exposure to COVID-19 virus Headache Anemia HTN (hypertension) Special needs due to hearing impairment of right ear GERD (gastroesophageal reflux disease) Iron deficiency anemia Allergic rhinitis Anxiety and depression Colon cancer screening Cataract Hypokalemia Chest pain Hearing impaired Closed left ankle fracture Surgical History Hx of colonoscopy History of section Family History Brother Colon cancer Father Myocardial infarct Father Hypertension CVD (cardiovascular disease) Mother Hypertension Sister Aneurysm Brother Acute CVA (cerebrovascular accident) Son No problems noted. Son No problems noted. Daughter No problems noted. 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 1. Little interest or pleasure in doing things: not at all 2. Feeling down, depressed, or hopeless: more than half the days 3. Trouble falling or staying asleep, or sleeping too much: more than half the days 4. Feeling tired or having little energy: not at all 5. Poor appetite or overeating: not at all 6. Feeling bad about yourself - or that you are a failure or have let yourself or your family down: not at all 7. Trouble concentrating on things, such as reading the newspaper or watching television: not at all 8. Moving or speaking so slowly that other people could have noticed. Or the opposite - being so fidgety or restless that you have been moving around a lot more than usual: not at all 9. Thoughts that you would be better off or of hurting yourself in some way: not at all Total score: 4 Depression Screening Interpretation: Positive Depression Screening Done: Yes Source: Developed by Drs. Max Russell, Josie Milligan, Haroon Dumont and colleagues, with an educational gabino from [employer]. Thrive Questionnaire Date Thrive assessed: 05/15/22 AUDIT C Alcohol Use Questionnaire (AUDIT-C) 1. How often do you have a drink containing alcohol?: Monthly or less 2. How many drinks containing alcohol do you have on a typical day when you are drinking?: 1 or 2 3. How often do you have six or more drinks on one occasion?: Never Total Score: 1 JAVIER-7 AMB Questionnaire JAVIER-7 Date JAVIER - 7 assessed: 05/15/22 Source: Developed by Drs. Max Russell, Josie Milligan, Haroon Dumont and colleagues, with an educational gabino from [employer]. Review of Systems Const Denies poor appetite and Denies weakness Eyes Denies no additional complaints ENT Reports Normal hearing present, Denies dizziness, Denies nasal congestion, Denies tinnitus and Denies sore throat Card Denies chest pain, Denies syncope, Denies rapid heart rate and Denies dyspnea Resp Denies cough and Denies dyspnea GI Denies change in stool character, Reports constipation, Denies diarrhea, Denies nausea and Denies vomiting Denies urinary frequency, Denies difficulty voiding and Denies dysuria Neuro Reports Normal hearing present, Denies confusion, Denies dizziness, Denies syncope and Denies weakness Psych Denies confusion Physical exam (Primary Care) Vital Signs: Oxygen Delivery Method Room Air 02/05/23 12:34 Tobacco/Smoking Status: Tobacco use Status Tobacco use date assessed 05/15/22 11/20/22 11:14 Patient Tobacco Use Status Never used Tobacco 11/20/22 11:14 e-Cigarette/Vaping Use Never Used 11/20/22 11:14 Depression Screening Interpretation: Positive Thrive Assessment: Date of Thrive Assessment Date Thrive assessed 05/15/22 11/20/22 11:14 Const General: No confusion Orientation/consciousness: No confusion HENMT Head: Yes normocephalic Ears: external ears normal and TM's normal bilaterally Face and sinus: Yes normal facial exam Mouth: moist mucous membranes Throat: Yes tonsils normal Eyes Conjunctivae: conjunctivae normal Pupils: Equal, round and reactive pupils present and Pupil accommodation reflex normal Direct Ophthalmoscopy: normal light reflex Neck Neck: No lymphadenopathy Thyroid: Thyroid normal Chest Chest palpation & inspection: normal inspection of the chest Resp Effort & Inspection: normal respiratory effort and no audible wheezes Auscultation: clear to auscultation bilaterally, no crackles, no wheezes and lung sounds not diminished Cardio Rate: regular rate Rhythm: regular rhythm Peripheral pulses: radial pulses present and dorsalis pedis present GI Palpation (GI): no masses Auscultation: normal bowel sounds and normoactive bowel sounds Rectal Exam - Female: deferred Skin General skin exam: no rashes or lesions noted Rashes: no rashes Neuro General: No confusion Cranial nerves: Yes Equal, round and reactive pupils present and Yes Normal hearing present Cognition (Neuro): normal cognition Gait exam (Neuro): Normal gait present Motor exam (neuro): 5/5 motor strength present throughout Deep tendon reflexes (DTR's): Right brachioradialis reflex intensity grade: 2+, Left brachioradialis reflex intensity grade: 2+, Right patellar reflex intensity grade: 2+ and Left patellar reflex intensity grade: 2+ Extrem General: No edema Assessment and Plan Assessment & Plan (1) Annual physical exam: Code(s): Z00.00 - Encounter for general adult medical examination without abnormal findings (2) HTN (hypertension): Code(s): I10 - Essential (primary) hypertension Plan: Continue with blood pressure medication. Decrease salt intake and exercise on lisinopril 10 mgonce a day (3) GERD (gastroesophageal reflux disease): Code(s): K21.9 - Gastro-esophageal reflux disease without esophagitis Qualifiers: Esophagitis presence: esophagitis presence not specified Qualified Code(s): K21.9 - Gastro-esophageal reflux disease without esophagitis Plan: Avoid the foods that causes that usually spicy foods, tomato products, juices, coffee, soda and foods that your sensitive to. After eating do not lie down, allow 3-4 hours before in lie down. And keep the head of bed above 30 degrees to avoid the acid from going up. (4) Hypercholesterolemia: Code(s): E78.00 - Pure hypercholesterolemia, unspecified Plan: Avoid fried foods, chicken skin, eggs, butter margarine, pastries and meat. Be it pork or beef they have a lot of cholesterol LDL goal of less than 130 and triglyceride of less than 150 (5) Breast cancer screening by mammogram: Code(s): Z12.31 - Encounter for screening mammogram for malignant neoplasm of breast Plan: Mammogram reminder (6) Hearing loss: Code(s): H91.90 - Unspecified hearing loss, unspecified ear Orders: Orders MM tomosynthesis screening BI Today Z12.31 - Encounter for screening mammogram for malignant neoplasm of breast Lipid Panel 3 Months E78.00 - Pure hypercholesterolemia, unspecified Comprehensive Met. Panel 3 Months E78.00 - Pure hypercholesterolemia, unspecified Referrals Speech and Hearing Referral H91.90 - Unspecified hearing loss, unspecified ear Medications: New simvastatin 5 mg PO BEDTIME 30 tabs 5RF E78.00 - Pure hypercholesterolemia, unspecified Changed From lisinopril 10 mg PO DAILY 90 tabs 1RF I10 - Essential (primary) hypertension To lisinopril 20 mg PO DAILY 30 tabs 4RF I10 - Essential (primary) hypertension Coding Level of Care Code Est Pt Prev Care 40-64y(54976) Diagnoses Annual physical exam Z00.00 HTN (hypertension) I10 Gastroesophageal reflux disease, unspecified whether esophagitis present K21.9 Esophagitis presence: esophagitis presence not specified Hypercholesterolemia E78.00 Breast cancer screening by mammogram Z12.31 Hearing loss H91.90
== END 2023-02-05 13:10 | disposition home or self-care (01) ==
PROVIDERS: PCP Internal Medicine; Visit Provider Internal Medicine
DX: Z00.00 Encounter for general adult medical examination without abnormal findings (principal); I10 Essential (primary) hypertension; K21.9 Gastro-esophageal reflux disease without esophagitis; E78.00 Pure hypercholesterolemia, unspecified; Z12.31 Encounter for screening mammogram for malignant neoplasm of breast; H91.90 Unspecified hearing loss, unspecified ear
CPT/HCPCS: 99396

== ENCOUNTER 2023-03-12 11:41 | Outpatient (REF) | payer OTHER, SELFPAY ==
--- NOTE | ~2023-03-12 | MM_ITS ---
EXAMINATION: MM SCREENING DIGITAL BREAST TOMOSYNTHESIS, BILATERAL CLINICAL INFORMATION: Screening. Asymptomatic. COMPARISON: Mammography: This study is compared with prior exams dating back to 2019. TECHNIQUE: Digital breast tomosynthesis is performed in both the craniocaudal and mediolateral oblique views along with computer-aided detection (CAD). Synthesized 2D images are generated from the tomosynthesis. FINDINGS: There are scattered areas of fibroglandular density (ACR BI-RADS breast composition Category b). There are no significant masses, abnormal calcifications, or other abnormalities. There are unchanged, benign calcifications in the right breast. MM/MM tomosynthesis screening BI IMPRESSION: No mammographic evidence of malignancy. ASSESSMENT: BI-RADS BI-RADS 2 - Benign Findings RECOMMENDATION: Routine annual mammography screening. 1 year F/U This examination should not preclude the clinical evaluation of a suspicious palpable abnormality. This patient's information was entered into a reminder system with a target due date for their next mammogram.
== END 2023-03-12 11:42 | disposition home or self-care (01) ==
LOC: HO.MAMMO 11:41
PROVIDERS: PCP Internal Medicine; Visit Provider Internal Medicine
DX: Z12.31 Encounter for screening mammogram for malignant neoplasm of breast (principal)
CPT/HCPCS: 77063; 77067

== ENCOUNTER → 2023-03-12 11:45 | Outpatient (BNV) | payer OTHER, SELFPAY | PROVIDERS: PCP Internal Medicine; Visit Provider Radiology Diagnostic Radiology | DX: Z12.31 Encounter for screening mammogram for malignant neoplasm of breast (principal) | CPT/HCPCS: 77063; 77067 ==

== ENCOUNTER 2023-05-20 09:33 | Outpatient (REF) | payer OTHER, SELFPAY ==
[2023-05-20 10:53] LABS: Alanine Aminotransferase 13 U/L (0-31); Albumin Level 3.9 g/dL (3.5-5.0); Alkaline Phosphatase 74 U/L (39-117); Anion Gap 11 (12-20); Aspartate Amino Transferase 17 U/L (5-31); Bilirubin Total 0.3 mg/dL (0.0-1.0); Blood Urea Nitrogen 13 mg/dL (9-16); Calcium 9.4 mg/dL (8.4-10.2); Carbon Dioxide 29 mmol/L (22-29); Chloride 107 mmol/L (96-108); Cholesterol 228 mg/dL (<200); Estimated Glomerular Filt Rate > 60; Glucose Random 81 mg/dL (60-115); HDL Cholesterol 61 mg/dL (>40); LDL Cholesterol Calculated 148 mg/dL (<100); Potassium 4.1 mmol/L (3.3-5.1); Sodium 143 mmol/L (135-145); Total Protein 7.2 g/dL (6.5-8.0); Triglycerides 96 mg/dL (<150)
== END 2023-05-20 09:34 | disposition home or self-care (01) ==
LOC: HO.LAB 09:33
PROVIDERS: PCP Internal Medicine; Visit Provider Internal Medicine
DX: E78.00 Pure hypercholesterolemia, unspecified (principal)
CPT/HCPCS: 36415; 80053; 80061

== ENCOUNTER 2023-05-21 10:56 | Outpatient (AMB) | payer OTHER, SELFPAY ==
[2023-05-21 10:59] VITALS: BP 132/86; PULSE 66; O2SAT 98; BMI 23.8
--- NOTE | 2023-05-21 10:59 | A.OFFPC_ITS ---
Vital Signs 05/21/23 10:59 Height 5 ft Weight 122 lb 0.8 oz BMI 23.8 BP 132/86 Blood Pressure Location Lt brachial Position Sitting Pulse 66 Pulse Source Pulse Oximeter Pulse Oximetry (%) 98 Oxygen Delivery Method Room Air Intake Visit Reasons: HTN CHOL Intake Note: Patient is here to follow up on HTN Resource Recovery Specialist Required: No Allergies No Known Allergies [No Known Allergies*] Allergy (Verified 05/21/23 11:02) Tobacco use date assessed: 05/21/23 Dental Screening Dental Screen Date: 05/21/23 Did you have a dental visit in the last 12 months?: Yes Did you have a dental problem in the last 6 months where you did not have access to dental care?: No Was dental information given to patient?: Patient has dentist HPI HTN CHOL HPI Details 62-year-old female with a history of hyp ertension GERD hypercholesterolemia last seen in January 2023 patient's mammogram is up-to-date colonoscopy is due for this year . has not taken the cholesterol trying to do diet but seeing the results of the blood work would like to try the medication. [facility] Medical History (Updated 05/21/23 @ 11:06 by Han Marcano MD) Breast cancer screening by mammogram Hearing loss Exposure to COVID-19 virus Headache Anemia HTN (hypertension) Special needs due to hearing impairment of right ear GERD (gastroesophageal reflux disease) Iron deficiency anemia Allergic rhinitis Anxiety and depression Colon cancer screening Cataract Hypokalemia Chest pain Hearing impaired Closed left ankle fracture Surgical History Hx of colonoscopy History of section Family History Brother Colon cancer Father Myocardial infarct Father Hypertension CVD (cardiovascular disease) Mother Hypertension Sister Aneurysm Brother Acute CVA (cerebrovascular accident) Son No problems noted. Son No problems noted. Daughter No problems noted. 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 How often do you have a drink containing alcohol?: Monthly or less 2. How many drinks containing alcohol do you have on a typical day when you are drinking?: 1 or 2 3. How often do you have six or more drinks on one occasion?: Never Total Score: 1 JAVIER-7 AMB Questionnaire JAVIER-7 Date JAVIER - 7 assessed: 05/21/23 Source: Developed by Drs. Max Russell, Josie Milligan, Haroon Dumont and colleagues, with an educational gabino from [employer]. Physical exam (Primary Care) Vital Signs: Last Vital Signs Pulse 66 05/21/23 10:59 BP 132/86 05/21/23 10:59 Pulse Ox 98 05/21/23 10:59 Oxygen Delivery Method Room Air 05/21/23 10:59 BMI result Body Mass Index 23.8 Tobacco/Smoking Status: Tobacco use Status Tobacco use date assessed 05/21/23 05/21/23 11:04 Patient Tobacco Use Status Never used Tobacco 05/21/23 11:04 e-Cigarette/Vaping Use Never Used 05/21/23 11:04 Thrive Assessment: Date of Thrive Assessment Date Thrive assessed 05/15/22 05/21/23 11:04 Const General: alert; No acute distress Eyes Conjunctivae: conjunctivae normal Resp Auscultation: clear to auscultation bilaterally Cardio Rate: regular rate Rhythm: regular rhythm GI Inspection: Yes normal to inspection Extrem General: Yes normal to inspection and No edema Immunizations tetanus-diphtheria toxoids-Td 2 Lf unit-2 Lf unit/0.5 mL IM suspension Performing Provider: Han Marcano MD [facility] Administered by: QASIM Higuera on 05/21/23 11:19 Dose Route Admin Location Dispensed Lot Number Expiration Date NDC Station Repairer 0.5 mL IM Left Deltoid 0.5 mL [id number] 08/17/23 [address]-2 [employer] VIS Given Date VIS Provided VIS Publication Date 05/21/23 Single Vaccine 20 Eligibility Eligibility Date Funding Source Not VFC Eligible 05/21/23 [facility] Assessment and Plan Assessment & Plan (1) HTN (hypertension): Code(s): I10 - Essential (primary) hypertension Plan: Continue with blood pressure medication. Decrease salt intake and exercise patient takes lisinopril 20 mg once a day (2) GERD (gastroesophageal reflux disease): Code(s): K21.9 - Gastro-esophageal reflux disease without esophagitis Qualifiers: Esophagitis presence: esophagitis presence not specified Qualified Code(s): K21.9 - Gastro-esophageal reflux disease without esophagitis Plan: Avoid the foods that causes that usually spicy foods, tomato products, juices, coffee, soda and foods that your sensitive to. After eating do not lie down, allow 3-4 hours before in lie down. And keep the head of bed above 30 degrees to avoid the acid from going up. (3) Colon cancer screening: Comment: 2013 Code(s): Z12.11 - Encounter for screening for malignant neoplasm of colon Plan: Patient is reminded about colonoscopy (4) Hypercholesterolemia: Code(s): E78.00 - Pure hypercholesterolemia, unspecified Plan: Avoid fried foods, chicken skin, eggs, butter margarine, pastries and meat. Be it pork or beef they have a lot of cholesterol LDL goal of less than 130 and triglyceride of less than 150. Patient has not started the medication and wanted to do diet 1st but with the results will be starting cholesterol medication Orders: Orders Comprehensive Met. Panel 3 Months E78.00 - Pure hypercholesterolemia, unspecified Lipid Panel 3 Months E78.00 - Pure hypercholesterolemia, unspecified Td State Immunization Today Z23 - Encounter for immunization Medications: Changed From lisinopril 20 mg PO DAILY 30 tabs 4RF I10 - Essential (primary) hypertension To lisinopril 20 mg PO DAILY 90 tabs 2RF 90 days I10 - Essential (primary) hypertension Refilled ferrous sulfate 325 mg PO DAILY 90 tabs 3RF E78.00 - Pure hypercholesterolemia, unspecified Coding Level of Care Code Est Pt Level 4 (04175) Diagnoses HTN (hypertension) I10 Gastroesophageal reflux disease, unspecified whether esophagitis present K21.9 Esophagitis presence: esophagitis presence not specified Colon cancer screening Z12.11 Hypercholesterolemia E78.00
== END 2023-05-21 11:29 | disposition home or self-care (01) ==
PROVIDERS: PCP Internal Medicine; Visit Provider Internal Medicine
DX: I10 Essential (primary) hypertension (principal); K21.9 Gastro-esophageal reflux disease without esophagitis; Z12.11 Encounter for screening for malignant neoplasm of colon; E78.00 Pure hypercholesterolemia, unspecified; Z23 Encounter for immunization
CPT/HCPCS: 90471; 90714; 99214

== ENCOUNTER 2023-06-04 08:56 | Day surgery (SDC) | payer OTHER, SELFPAY ==
[2023-06-02 10:26] VITALS: BMI 25.2
--- NOTE | 2023-06-03 09:42 | P.CONAN_ITS ---
HPI - Anesthesia Eval Consult details Narrative: 62yo F for Colonoscopy [facility] Active Problems Active Problems: All Active Problems (Updated 05/21/23 @ 11:06 by Han Marcano MD) Hearing loss (Acute) Toe pain, left (Acute) Onychomycosis (Acute) Plantar fasciitis (Acute) Chest pain (Acute) Situational depression (Acute) Viral upper respiratory illness (Acute) Hypercholesterolemia (Acute) Colon cancer screening (Acute) Right-sided chest pain (Acute) Allergic rhinitis (Acute) Anemia (Acute) Costochondritis (Acute) Annual physical exam (Acute) Fracture of fifth toe, right, closed (Acute) Painful arc syndrome of left shoulder (Acute) HTN (hypertension) (Acute) GERD (gastroesophageal reflux disease) (Acute) Past Medical History Medical History (Updated 05/21/23 @ 11:06 by Han Marcano MD) Breast cancer screening by mammogram Hearing loss Exposure to COVID-19 virus Headache Anemia HTN (hypertension) Special needs due to hearing impairment of right ear GERD (gastroesophageal reflux disease) Iron deficiency anemia Allergic rhinitis Anxiety and depression Colon cancer screening Cataract Hypokalemia Chest pain Hearing impaired Closed left ankle fracture Family History Family History Brother Colon cancer Father Myocardial infarct Father Hypertension CVD (cardiovascular disease) Mother Hypertension Sister Aneurysm Brother Acute CVA (cerebrovascular accident) Son No problems noted. Son No problems noted. Daughter No problems noted. 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[employer]) Current occupational exposures/hazards: No Cognitive needs: No Hearing needs: No Vision needs: Yes Meds Allergies Allergy/AdvReac Type Severity Reaction Status Date / Time No Known Allergies Allergy Verified 05/21/23 11:02 [No Known Allergies*] Exam Height,Weight and Vital Signs: Height 5 ft Weight 58.513 kg Pertinent Lab Results Pertinent Lab Results: Laboratory Tests 11/20/22 05/20/23 12:22 09:55 WBC 8.0 Hgb 12.5 Hct 39.8 Plt Count 351 Sodium 143 Potassium 4.1 Chloride 107 Carbon Dioxide 29 BUN 13 Creatinine 0.70 Assessment and Plan Assessment Anesthesia Assessment: Chart Reviewed
--- NOTE | 2023-06-04 09:15 | MHC.SHP ---
Pre-Procedural Eval Section A - 24 Hr Update-Section A only Date of Service: 06/04/23 Section B - Complete if H&P > 30 days Chief Complaint: Encounter for screening for malignant neoplasm of Details of Present Illness: PMH: Allergic rhinitis Anemia Anxiety and depression Cataract Chest pain Closed left ankle fracture Colon cancer screening Exposure to COVID-19 virus GERD (gastroesophageal reflux disease) Headache Hearing impaired Hearing loss HTN (hypertension) Hypokalemia Iron deficiency anemia Special needs due to hearing impairment of right ear Surgical History History of section Hx of colonoscopy Present Medications: see Short Stay Collaborative assessment Allergies: Allergies Allergy/AdvReac Type Severity Reaction Status Date / Time No Known Allergies Allergy Verified 05/21/23 11:02 [No Known Allergies*] Review of Systems Review of Systems Comment: Ten point ROS negative Exam Exam Comment: Gen appear: No acute distress HEENT: no icterus Chest: No overt resp distress Abd: soft, nontender, nondistended Psych: Stable affect, answering questions appropriately Neuro: A/Ox3 noted to move all extremities spontaneously Ext: no peripheral edema Plan Diagnosis/Plan: Unchanged I have reviewed the history and physical and performed a pertinent physical examination on my patient. No changes have occurred unless specified. Time Spent With Patient Time: Total time managing care of this patient today ____ minutes.
[2023-06-04 10:09] VITALS: BMI 24.0
[2023-06-04 10:36] VITALS: BP 139/89; PULSE 85; RESP 16; TEMP 36.8; O2SAT 99
--- NOTE | 2023-06-04 10:37 | P.CONAN_ITS ---
[facility] Active Problems Active Problems: All Active Problems (Updated 05/21/23 @ 11:06 by Han Marcano MD) Hearing loss (Acute) Toe pain, left (Acute) Onychomycosis (Acute) Plantar fasciitis (Acute) Chest pain (Acute) Situational depression (Acute) Viral upper respiratory illness (Acute) Hypercholesterolemia (Acute) Colon cancer screening (Acute) Right-sided chest pain (Acute) Allergic rhinitis (Acute) Anemia (Acute) Costochondritis (Acute) Annual physical exam (Acute) Fracture of fifth toe, right, closed (Acute) Painful arc syndrome of left shoulder (Acute) HTN (hypertension) (Acute) GERD (gastroesophageal reflux disease) (Acute) Past Medical History Medical History Breast cancer screening by mammogram Hearing loss Exposure to COVID-19 virus Headache Anemia HTN (hypertension) Special needs due to hearing impairment of right ear GERD (gastroesophageal reflux disease) Iron deficiency anemia Allergic rhinitis Anxiety and depression Colon cancer screening Cataract Hypokalemia Chest pain Hearing impaired Closed left ankle fracture Family History Family History Brother Colon cancer Father Myocardial infarct Father Hypertension CVD (cardiovascular disease) Mother Hypertension Sister Aneurysm Brother Acute CVA (cerebrovascular accident) Son No problems noted. Son No problems noted. Daughter No problems noted. Family history of problems with anesthesia: No Surgical History Surgical History Hx of colonoscopy History of section History of Problems with Anesthesia: No Social History Social History Housing: Apartment Alcohol intake: current Alcohol intake frequency: holidays/special occasions only Patient Tobacco Use Status: Never used Tobacco e-Cigarette/Vaping Use: Never Used Second Hand Smoke Exposure: No Use of substances other than those prescribed or required for medical reasons: No Are you DNR?: No Advance Directives: No Advance Directives Information Provided: Yes service: No Current occupational status: employed 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[employer]) Current occupational exposures/hazards: No Cognitive needs: No Hearing needs: No Vision needs: Yes Meds Allergies Allergy/AdvReac Type Severity Reaction Status Date / Time No Known Allergies Allergy Verified 06/04/23 10:05 [No Known Allergies*] Active Medications: Current Medications Lactated Ringer's (Lr) 1,000 mls @ 100 mls/hr IVCONT .Q10H ROBERTO Ondansetron HCl (Ondansetron Hcl 4 Mg/2 Ml Vial) 4 mg IVPUSH ONCE PRN PRN Reason: Nausea and Vomiting Exam Height,Weight and Vital Signs: Height 5 ft Weight 55.792 kg Last Vital Signs Temp 98.3 F 06/04/23 10:36 Pulse 85 06/04/23 10:36 Resp 16 06/04/23 10:36 BP 139/89 06/04/23 10:36 Pulse Ox 99 06/04/23 10:36 O2 Del Method Room Air 06/04/23 10:36 Airway Mallampati Class: II TM Dist: >3cm Neck ROM: Full Loose/Missing/Broken Teeth: No (rrr) Heart: rrr Lungs: clear Assessment and Plan Final Anesthetic Review Family History of Problems with Anesthesia: No History of Problems with Anesthesia: No NPO: Yes ASA Class: II Final Preanesthetic Review: No Changes in Pt Med Stat, Meds/Allgs Chart Reviewed, Consent Obtained/Reviewed and Anes Risks/Benef Reviewed Patient Risk: Intermediate Procedure Risk: Low
--- NOTE | 2023-06-04 10:41 | P.OP_ITS ---
Operative Note Operative Note Date of Service: 06/04/23 Narrative: Procedure: Colonoscopy Indication: Screening Endoscopist: Pau Briones MD Anesthesia Provider: Dr. Haile Lewis Anesthesia type: MAC Instrument: Olympus [id number]-H190L Consent: Indication, risks vs benefits, and alternatives were discussed with the patient who gave written informed consent to proceed. EKG, pulse, pulse oximetry and blood pressure were monitored throughout the procedure. Please see anesthesia flowsheet. Procedure: The patient was brought to the procedure room and placed in the left lateral decubitus position. IV medications were administered by the anesthesia provider in attendance. A digital rectal exam was performed which was abnormal due to finding of hemorrhoids. A distal attachment cap was affixed to the tip of the scope and the colonoscope was then inserted through the anus and advanced through the colon to the cecum at 70 cm,and terminal ileum. Ileocecal valve and appendiceal orifice were identified. Mucosa was carefully examined under high definition white light as the instrument was slowly withdrawn in a retrograde panoramic fashion. Retroflexion was performed in rectum. The procedure was not difficult. There were no immediate obvious complications. The quality of the prep was BBPS: 3+2+3 = adequate Withdrawal time 10 minutes. Limitations: No limitations. Findings: Mucosa: Normal to cecum and terminal ileum. Protruding lesions: * Medium internal hemorrhoids without stigmata of recent bleeding. Impression: 1. Normal colon and terminal ileum mucosa 2. External and internal hemorrhoids Recommendations: - Repeat colonoscopy for asymptomatic colorectal cancer screening in 10 years
[2023-06-04] MEDS: Lactated Ringers 1,000 ML 100 ML IVCONT (10:48)
[2023-06-04 11:20] VITALS: BP 109/66; PULSE 79; RESP 19; TEMP 36.6; O2SAT 97
[2023-06-04 11:35] VITALS: BP 118/67; PULSE 70; RESP 20; TEMP 36.6; O2SAT 99
[2023-06-04 11:50] VITALS: BP 125/74; PULSE 71; RESP 16; TEMP 36.2; O2SAT 100
== END 2023-06-04 12:44 | disposition home or self-care (01) ==
PROVIDERS: PCP Internal Medicine; Visit Provider Internal Medicine
PROC: 0DJD8ZZ Inspection of Lower Intestinal Tract, Via Natural or Artificial Opening Endoscopic (ICD-10-PCS; CPT 45378; principal; 2023-06-04 11:00)
DX: Z12.11 Encounter for screening for malignant neoplasm of colon (principal); K64.8 Other hemorrhoids; K64.4 Residual hemorrhoidal skin tags; K21.9 Gastro-esophageal reflux disease without esophagitis; I10 Essential (primary) hypertension; J30.9 Allergic rhinitis, unspecified; H91.91 Unspecified hearing loss, right ear; D50.9 Iron deficiency anemia, unspecified; F41.8 Other specified anxiety disorders; E87.6 Hypokalemia; Z79.899 Other long term (current) drug therapy
CPT/HCPCS: 45378; J2704

== ENCOUNTER → 2023-06-04 08:56 | Outpatient (BNV) | payer OTHER, SELFPAY | PROVIDERS: PCP Internal Medicine; Visit Provider Internal Medicine | DX: Z12.11 Encounter for screening for malignant neoplasm of colon (principal); K64.8 Other hemorrhoids | CPT/HCPCS: 45378 ==

== ENCOUNTER 2023-06-25 12:40 | Outpatient (REF) | payer OTHER, SELFPAY | END 2023-06-25 12:41 | disposition home or self-care (01) | LOC: HO.SH 12:40 | PROVIDERS: Visit Provider Internal Medicine | DX: H90.A31 Mixed conductive and sensorineural hearing loss, unilateral, right ear with restricted hearing on the contralateral side (principal) | CPT/HCPCS: 92557; 92567 ==

== ENCOUNTER 2023-07-08 09:44 | Outpatient (AMB) | payer OTHER, SELFPAY ==
--- NOTE | 2023-07-08 09:47 | A.OFFVIS_ITS ---
Intake Vital Signs 07/08/23 09:50 Height 5 ft Weight 127 lb BMI 24.8 BP 167/81 H Blood Pressure Location Lt brachial Pulse 69 Pulse Source Pulse Oximeter Pulse Oximetry (%) 99 Oxygen Delivery Method Room Air Intake Visit Reasons: colo results Information Interpreted: non-clinical & clinical Accompanied by: Self / Same As Patient Allergies No Known Allergies [No Known Allergies*] Allergy (Verified 06/04/23 10:05) HPI colo results HPI Details LAST VISIT Colon cancer screening What to expect before during and after procedure discussed with patient. Went over in detail again how to prep and what to eat today before the procedure. Patient is aware that she needs to be on clear liquid diet. Patient denies any cardiac or respiratory symptoms. The patient no longer has acid reflux. Please schedule the procedure I will see patient after the procedure, sooner on as needed basis. Patient is agreeable to this plan and verbalizes understanding of instructions. She was given the opportunity to ask questions all questions answered. ? Thank you for allowing me to participate in her care Plan Medications Changed From polyethylene glycol 3350 As directed by gastroenterology department at [facility] 238 grams PO ONCE 238 grams 0RF Z12.11 To polyethylene glycol 3350 (Miralax) As directed by gastroenterology department at [facility] 238 grams PO ONCE 238 grams 0RF Z12.11 Refilled bisacodyl (Dulcolax (bisacodyl)) take 2 tabs at noon the day before your colonoscopy 10 mg (2 x 5 mg) PO ONCE 2 tabs 0RF 1 day Z12.11 COLONOSCOPY: Findings: Mucosa: Normal to cecum and terminal ileum. Protruding lesions: * Medium internal hemorrhoids without stigmata of recent bleeding. Impression: 1. Normal colon and terminal ileum mucos a 2. External and internal hemorrhoids Recommendations: - Repeat colonoscopy for asymptomatic co lorectal cancer screening in 10 years TODAY'S VISIT: Patient is here today for follow-up and to discuss colonoscopy results. Patient had normal colonoscopy, no polyps found. Recommendation for asymptomatic colorectal screening 10 years, sooner if clinically necessary. Patient was found to have external internal hemorrhoids. Patient denies any ill effects from the prep, anesthesia or procedure itself. Patient reports that occasionally she might feel constipated, however she states that it does not happen that often. Patient usually have 1-2 bowel movements daily. However patient states that when she does get constipated she will feel that her hemorrhoids are coming out. Patient denies any melena, hematochezia, unintentional weight loss or ribbon like stools. Patient denies any dyspepsia, dysphagia or odynophagia. Patient is also taking iron supplements which makes her stool harder at times if she does not drink enough water. [facility] Medical History Breast cancer screening by mammogram Hearing loss Exposure to COVID-19 virus Headache Anemia HTN (hypertension) Special needs due to hearing impairment of right ear GERD (gastroesophageal reflux disease) Iron deficiency anemia Allergic rhinitis Anxiety and depression Colon cancer screening Cataract Hypokalemia Chest pain Hearing impaired Closed left ankle fracture Surgical History Hx of colonoscopy History of section Family History Brother Colon cancer Father Myocardial infarct Father Hypertension CVD (cardiovascular disease) Mother Hypertension Sister Aneurysm Brother Acute CVA (cerebrovascular accident) Son No problems noted. Son No problems noted. Daughter No problems noted. Social History Housing: Apartment Alcohol intake: current Alcohol intake frequency: holidays/special occasions only Patient Tobacco Use Status: Never used Tobacco e-Cigarette/Vaping Use: Never Used Second Hand Smoke Exposure: No service: No Current occupational status: employed Current occupation: [employer] ([employer]) Current occupational exposures/hazards: No Cognitive needs: No Hearing needs: No Vision needs: Yes Review of Systems Const Denies weight gain and Denies weight loss ENT Reports no additional complaints, Denies dysphagia and Denies odynophagia Card Reports no additional complaints Resp Reports no additional complaints GI Denies abdominal pain, Denies belching, Denies melena, Denies bloating, Denies change in bowel habits, Denies dysphagia, Denies excessive flatus, Denies dyspepsia, Denies heartburn, Denies diarrhea, Denies loose stools, Denies nausea, Denies odynophagia and Denies vomiting Musc Reports no additional complaints Neuro Reports no additional complaints Psych Reports no additional complaints Endo Reports no additional complaints Physical Exam Const General: healthy appearing, no acute distress and well developed Nutritional Appearance: well nourished Orientation/consciousness: patient oriented x3 Resp Effort & Inspection: normal respiratory effort, able to speak in complete sentences, no tracheal deviation and symmetric chest movement Auscultation: clear to auscultation bilaterally Cardio Rate: regular rate GI Inspection: Yes normal to inspection and No distended Palpation (GI): Soft to palpation, not firm, nontender and No hepatosplenomegaly present Auscultation: normal bowel sounds General: Yes no CVA tenderness Back/Spine/Pelvis Back: no CVA tenderness Skin General skin exam: elasticity normal, turgor normal and dry skin Neuro General: patient oriented x3 Psych Appearance: grossly normal Mental Status: mental status grossly normal Assessment & Plan Assessment & Plan (1) Status post colonoscopy: Code(s): Z98.890 - Other specified postprocedural states (2) Hemorrhoid: Code(s): K64.9 - Unspecified hemorrhoids Qualifiers: Hemorrhoid type: unspecified Qualified Code(s): K64.9 - Unspecified hemorrhoids Plan Asymptomatic colorectal screening in 10 years, sooner if clinically necessary. Patient has normal colonoscopy. Patient was encouraged to increase fluid intake and activity to promote better bowel motility. Patient can take stool softener daily or on as needed basis. Patient can use Proctosol for hemorrhoids. Sitz baths with Epsom salts recommended. Patient will follow-up with us on as-needed basis. She is agreeable to this plan and verbalizes understanding of instructions. She was given the opportunity to ask questions and all questions answered. Thank you for allowing me to participate in her care Medications: New docusate sodium 100 mg PO DAILY 30 caps 3RF K59.00 - Constipation, unspecified hydrocortisone 2.5% (Proctosol HC) 1 appl WI BID-QID PRN 30 grams 2RF hemorrhoids K64.9 - Unspecified hemorrhoids Coding Level of Care Code Est Pt Level 3 (58714) Diagnoses Status post colonoscopy Z98.890 Hemorrhoids, unspecified hemorrhoid type K64.9 Hemorrhoid type: unspecified Time Spent (min) 25 Comment 15 minutes spent with patient and additional 10 minutes spent reviewing her records
[2023-07-08 09:50] VITALS: BP 167/81; PULSE 69; O2SAT 99; BMI 24.8
== END 2023-07-08 10:22 | disposition home or self-care (01) ==
PROVIDERS: PCP Internal Medicine; Visit Provider Nurse Practitioner Family
DX: Z98.890 Other specified postprocedural states (principal); K64.9 Unspecified hemorrhoids
CPT/HCPCS: 99213

== ENCOUNTER → 2023-07-08 09:44 | Outpatient (BNVA) | payer OTHER, SELFPAY | PROVIDERS: PCP Internal Medicine; Visit Provider Nurse Practitioner Family | DX: K64.9 Unspecified hemorrhoids (principal); Z98.890 Other specified postprocedural states | CPT/HCPCS: 99212 ==

== ENCOUNTER 2023-08-20 09:26 | Outpatient (REF) | payer OTHER, SELFPAY ==
[2023-08-20 10:53] LABS: Alanine Aminotransferase 16 U/L (0-31); Alkaline Phosphatase 76 U/L (39-117); Anion Gap 10 (12-20); Aspartate Amino Transferase 18 U/L (5-31); Bilirubin Total 0.3 mg/dL (0.0-1.0); Blood Urea Nitrogen 13 mg/dL (9-16); Calcium 9.6 mg/dL (8.4-10.2); Carbon Dioxide 28 mmol/L (22-29); Chloride 109 mmol/L (96-108); Cholesterol 222 mg/dL (<200); Estimated Glomerular Filt Rate > 60; Glucose Random 81 mg/dL (60-115); HDL Cholesterol 57 mg/dL (>40); LDL Cholesterol Calculated 141 mg/dL (<100); Potassium 4.3 mmol/L (3.3-5.1); Sodium 143 mmol/L (135-145); Total Protein 7.4 g/dL (6.5-8.0); Triglycerides 120 mg/dL (<150)
== END 2023-08-20 09:27 | disposition home or self-care (01) ==
LOC: HO.LAB 09:26
PROVIDERS: PCP Internal Medicine; Visit Provider Internal Medicine
DX: E78.00 Pure hypercholesterolemia, unspecified (principal)
CPT/HCPCS: 36415; 80053; 80061

== ENCOUNTER 2023-08-20 10:37 | Outpatient (AMB) | payer OTHER, SELFPAY ==
[2023-08-20 10:38] VITALS: BP 148/96; PULSE 66; O2SAT 98; BMI 25.2
--- NOTE | 2023-08-20 10:38 | A.OFFPC_ITS ---
Vital Signs 08/20/23 10:38 Height 5 ft Weight 129 lb BMI 25.2 BP 148/96 H Blood Pressure Location Lt brachial Position Sitting Pulse 66 Pulse Source Pulse Oximeter Pulse Oximetry (%) 98 Oxygen Delivery Method Room Air Intake Visit Reasons: 3 month f/u Hypercholesterolemia hypertension Automobile Rental Clerk Required: No Allergies No Known Allergies [No Known Allergies*] Allergy (Verified 08/20/23 10:38) Medication List - Last Reconciled 08/20/23 by Han Marcano MD ascorbic acid (vitamin C) (Vitamin C) 500 mg PO DAILY blood pressure monitor (Blood Pressure Kit) As directed docusate sodium 100 mg PO DAILY ferrous sulfate 325 mg PO DAILY hydrocortisone 2.5% (Proctosol HC) 1 appl [place] BID-QID PRN lisinopril 20 mg PO DAILY 90 days simvastatin 5 mg PO BEDTIME Tobacco use date assessed: 08/20/23 Dental Screening Dental Screen Date: 05/21/23 HPI 3 month f/u Hypercholesterolemia hypertension HPI Details 62-year-old female with a history of hyp ertension GERD hypercholesterolemia last seen in May 2023. Patient's colonoscopy is due mammogram is up-to-date. Colonoscopy done in May 2023 normal colon does have external internal hemorrhoids. Ten years. As for cholesterol patient just had blood work done in the results are pending. Patient admits to not taking cholesterol medication yet and wants to find out the results. As for the blood pressure she thinks she is taking only 10 mg of lisinopril. Patient is advised to increase the dose but will get back to us with dose. Discussed about colonoscopy finding of hemorrhoids and constipation problem. Three rules for constipation 1. Diet need to have a high fiber diet less of meat 2. Increase oral fluids 3. Exercise [facility] Medical History (Updated 08/20/23 @ 10:57 by Han Marcano MD) Costochondritis Chest pain Viral upper respiratory illness Colon cancer screening Hearing loss Exposure to COVID-19 virus Headache Anemia HTN (hypertension) Special needs due to hearing impairment of right ear GERD (gastroesophageal reflux disease) Iron deficiency anemia Allergic rhinitis Anxiety and depression Cataract Hypokalemia Chest pain Hearing impaired Closed left ankle fracture Surgical History Hx of colonoscopy History of section Family History Brother Colon cancer Father Myocardial infarct Father Hypertension CVD (cardiovascular disease) Mother Hypertension Sister Aneurysm Brother Acute CVA (cerebrovascular accident) Son No problems noted. Son No problems noted. Daughter No problems noted. Social History Housing: Apartment Alcohol intake: current Alcohol intake frequency: holidays/special occasions only Patient Tobacco Use Status: Never used Tobacco e-Cigarette/Vaping Use: Never Used Second Hand Smoke Exposure: No service: No Current occupational status: employed Current occupation: [email or web address] ([employer]) Current occupational exposures/hazards: No Cognitive needs: No Hearing needs: No Vision needs: Yes Questionnaire Thrive Questionnaire Date Thrive assessed: 08/20/23 I am a: Patient What is your living situation today?: I have a steady place to live Within the past 12 months, did the food you bought not last and you didn't have the money to get more?: Never true Within the past 12 months, did you worry whether your food would run out before you got money to buy more?: Never true Do you have trouble paying for medicines?: No Do you have trouble getting transportation to medical appointments?: No Do you have trouble paying your heating and electricity bill?: No Do you have trouble taking care of your child, family member or friend?: No Do you have trouble with day-to-day activities such as bathing, preparing meals, shopping, managing finances, etc.?: No Are you currently unemployed and looking for a job?: No Are you interested in more education?: No Please select the resources that you would like help with: None Currently or been in a relationship where the following occur: no concerns reported THRIVE Score: 0 AUDIT C Alcohol Use Questionnaire (AUDIT-C) 1. How often do you have a drink containing alcohol?: Monthly or less 2. How many drinks containing alcohol do you have on a typical day when you are drinking?: 1 or 2 3. How often do you have six or more drinks on one occasion?: Never Total Score: 1 JAVIER-7 AMB Questionnaire JAVIER-7 Date JAVIER - 7 assessed: 05/21/23 Source: Developed by Drs. Max Russell, Josie B.Haroon Spence and colleagues, with an educational gabino from [employer]. Physical exam (Primary Care) Vital Signs: Last Vital Signs Pulse 66 08/20/23 10:38 BP 148/96 H 08/20/23 10:38 Pulse Ox 98 08/20/23 10:38 Oxygen Delivery Method Room Air 08/20/23 10:38 BMI result Body Mass Index 25.2 Tobacco/Smoking Status: Tobacco use Status Tobacco use date assessed 08/20/23 08/20/23 10:45 Patient Tobacco Use Status Never used Tobacco 08/20/23 10:45 e-Cigarette/Vaping Use Never Used 08/20/23 10:45 Thrive Assessment: Date of Thrive Assessment Date Thrive assessed 08/20/23 08/20/23 10:45 Currently or been in a relationship where the following occur: no concerns reported Const General: alert; No acute distress Eyes Conjunctivae: conjunctivae normal Resp Auscultation: clear to auscultation bilaterally Cardio Rate: regular rate Rhythm: regular rhythm GI Inspection: Yes normal to inspection Extrem General: Yes normal to inspection and No edema Assessment and Plan Assessment & Plan (1) HTN (hypertension): Code(s): I10 - Essential (primary) hypertension Plan: Continue with blood pressure medication. Decrease salt intake and exercise patient takes lisinopril 20 mg once a day. But patient thinks that she is taking 10 mg of lisinopril only right now. Patient was advised to take 20 mg but if taking a different 1 will call. (2) Hypercholesterolemia: Code(s): E78.00 - Pure hypercholesterolemia, unspecified Plan: Avoid fried foods, chicken skin, eggs, butter margarine, pastries and meat. Be it pork or beef they have a lot of cholesterol LDL goal of less than 130 and tr iglyceride of less than 150 on simvastatin 5 mg at bedtime.. Patient admits to have not started with cholesterol medication yet. Blood work showing still elevated LDL. (3) GERD (gastroesophageal reflux disease): Code(s): K21.9 - Gastro-esophageal reflux disease without esophagitis Qualifiers: Esophagitis presence: esophagitis presence not specified Qualified Code(s): K21.9 - Gastro-esophageal reflux disease without esophagitis Plan: Avoid the foods that causes that usually spicy foods, tomato products, juices, coffee, soda and foods that your sensitive to. After eating do not lie down, allow 3-4 hours before in lie down. And keep the head of bed above 30 degrees to avoid the acid from going up. (4) Hemorrhoids: Comment: May 2023 Code(s): K64.9 - Unspecified hemorrhoids Plan: Discussed about constipation problem that can bring them about. Three rules for constipation 1. Diet need to have a high fiber diet less of meat 2. Increase oral fluids 3. Exercise Orders: Orders Comprehensive Met. Panel 3 Months E78.00 - Pure hypercholesterolemia, unspecified Lipid Panel 3 Months E78.00 - Pure hypercholesterolemia, unspecified Medications: Refilled lisinopril 20 mg PO DAILY 90 days 90 tabs 2RF I10 - Essential (primary) hypertension Coding Level of Care Code Est Pt Level 4 (65481) Diagnoses HTN (hypertension) I10 Hypercholesterolemia E78.00 Gastroesophageal reflux disease, unspecified whether esophagitis present K21.9 Esophagitis presence: esophagitis presence not specified Hemorrhoids K64.9
== END 2023-08-20 11:00 | disposition home or self-care (01) ==
PROVIDERS: PCP Internal Medicine; Visit Provider Internal Medicine
DX: I10 Essential (primary) hypertension (principal); E78.00 Pure hypercholesterolemia, unspecified; K21.9 Gastro-esophageal reflux disease without esophagitis; K64.9 Unspecified hemorrhoids
CPT/HCPCS: 99214

== ENCOUNTER 2024-02-11 09:17 | Outpatient (REF) | payer OTHER, SELFPAY ==
[2024-02-11 11:13] LABS: Alanine Aminotransferase 20 U/L (0-31); Albumin Level 4.2 g/dL (3.5-5.0); Alkaline Phosphatase 83 U/L (39-117); Anion Gap 11 (12-20); Aspartate Amino Transferase 25 U/L (5-31); Bilirubin Total 0.3 mg/dL (0.0-1.0); Blood Urea Nitrogen 14 mg/dL (9-16); Calcium 10.4 mg/dL (8.4-10.2); Carbon Dioxide 28 mmol/L (22-29); Chloride 108 mmol/L (96-108); Cholesterol 200 mg/dL (<200); Estimated Glomerular Filt Rate > 60; Glucose Random 89 mg/dL (60-115); HDL Cholesterol 55 mg/dL (>40); LDL Cholesterol Calculated 124 mg/dL (<100); Potassium 4.2 mmol/L (3.3-5.1); Sodium 143 mmol/L (135-145); Total Protein 7.8 g/dL (6.5-8.0); Triglycerides 105 mg/dL (<150)
== END 2024-02-11 09:18 | disposition home or self-care (01) ==
LOC: HO.LAB 09:17
PROVIDERS: PCP Internal Medicine; Visit Provider Internal Medicine
DX: Z00.00 Encounter for general adult medical examination without abnormal findings (principal); I10 Essential (primary) hypertension; K21.9 Gastro-esophageal reflux disease without esophagitis; E78.00 Pure hypercholesterolemia, unspecified; E83.52 Hypercalcemia; H91.8X3 Other specified hearing loss, bilateral; M94.0 Chondrocostal junction syndrome [Tietze]; Z79.899 Other long term (current) drug therapy
CPT/HCPCS: 36415; 80053; 80061; 96127; 99396

== ENCOUNTER 2024-02-11 12:17 | Outpatient (AMB) | payer OTHER, SELFPAY ==
--- NOTE | 2024-02-11 12:34 | A.OFFPC_ITS ---
Vital Signs 02/11/24 12:36 02/11/24 12:44 Height 5 ft Weight 130 lb BMI 25.4 BP 142/90 H 140/86 H Blood Pressure Location Lt brachial Lt brachial Position Sitting Pulse 73 Pulse Source Pulse Oximeter Pulse Oximetry (%) 95 Oxygen Delivery Method Room Air Intake Visit Reasons: PE/3 month f/u Intake Note: Patient is here today for a physical. Pt decline flu shot today. 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 per policy Accompanied by: Self / Same As Patient Allergies No Known Allergies [No Known Allergies*] Allergy (Verified 02/11/24 12:36) Medication List - Last Reconciled 02/11/24 by Han Marcano MD ascorbic acid (vitamin C) (Vitamin C) 500 mg PO DAILY blood pressure monitor (Blood Pressure Kit) As directed ferrous sulfate 325 mg PO DAILY hydrocortisone 2.5% (Proctosol HC) 1 appl [place] BID-QID PRN lisinopril 30 mg PO DAILY 90 days simvastatin 5 mg PO BEDTIME Tobacco use date assessed: 02/11/24 Dental Screening Dental Screen Date: 05/21/23 HPI PE/3 month f/u HPI Details 63 year old female with hypertension, hy percholesterolemia, GERD coming in for physical exam. Last seen in 08/2023. Patient's colonoscopy up-to-date 06/02/2023, mammogram due for this month. states chest pain PFSH Medical History (Updated 02/11/24 @ 12:52 by Han Marcano MD) Costochondritis Chest pain Viral upper respiratory illness Colon cancer screening Hearing loss Exposure to COVID-19 virus Headache Anemia HTN (hypertension) Special needs due to hearing impairment of right ear GERD (gastroesophageal reflux disease) Iron deficiency anemia Allergic rhinitis Anxiety and depression Cataract Hypokalemia Chest pain Hearing impaired Closed left ankle fracture Surgical History Hx of colonoscopy History of section Family History Brother Colon cancer Father Myocardial infarct Father Hypertension CVD (cardiovascular disease) Mother Hypertension Sister Aneurysm Brother Acute CVA (cerebrovascular accident) Son No problems noted. Son No problems noted. Daughter No problems noted. 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 1. Little interest or pleasure in doing things: several days 2. Feeling down, depressed, or hopeless: not at all 3. Trouble falling or staying asleep, or sleeping too much: more than half the days 4. Feeling tired or having little energy: several days 5. Poor appetite or overeating: not at all 6. Feeling bad about yourself - or that you are a failure or have let yourself or your family down: not at all 7. Trouble concentrating on things, such as reading the newspaper or watching television: not at all 8. Moving or speaking so slowly that other people could have noticed. Or the opposite - being so fidgety or restless that you have been moving around a lot more than usual: not at all 9. Thoughts that you would be better off or of hurting yourself in some way: not at all Total score: 4 Depression Screening Interpretation: Positive Depression Screening Done: Yes Source: Developed by Drs. Max Russell, Josie Milligan, Haroon Dumont and colleagues, with an educational gabino from [employer]. Thrive Questionnaire Date Thrive assessed: 02/11/24 I am a: Patient What is your living situation today?: I have a steady place to live Within the past 12 months, did the food you bought not last and you didn't have the money to get more?: Never true Within the past 12 months, did you worry whether your food would run out before you got money to buy more?: Never true Do you have trouble paying for medicines?: No Do you have trouble getting transportation to medical appointments?: No Do you have trouble paying your heating and electricity bill?: No Do you have trouble taking care of your child, family member or friend?: No Do you have trouble with day-to-day activities such as bathing, preparing meals, shopping, managing finances, etc.?: No Are you currently unemployed and looking for a job?: No Are you interested in more education?: No Please select the resources that you would like help with: None Currently or been in a relationship where the following occur: No concerns reported THRIVE Score: 0 AUDIT C Alcohol Use Questionnaire (AUDIT-C) 1. How often do you have a drink containing alcohol?: Never Total Score: 0 JAVIER-7 AMB Questionnaire JAVIER-7 Date JAVIER - 7 assessed: 02/11/24 Feeling nervous, anxious, or on edge: 1 = Several days Not being able to stop or control worryin = Not at all Worrying too much about different things: 0 = Not at all Trouble relaxin = Not at all Being so restless that it is hard to sit still: 0 = Not at all Becoming easily annoyed or irritable: 0 = Not at all Feeling afraid as if something awful might happen: 0 = Not at all Total JAVIER-7 score (0-4 normal; 5-9 mild; 10-14 moderate; 15-21 severe): 1 Source: Developed by Drs. Max Russell, Josie Milligan, Haroon Dumont and colleagues, with an educational gabino from [employer]. Review of Systems Const Denies poor appetite and Denies weakness Eyes Denies no additional complaints ENT Reports Normal hearing present, Denies dizziness, Denies nasal congestion, Denies tinnitus and Denies sore throat Card Denies chest pain, Denies syncope, Denies rapid heart rate and Denies dyspnea Resp Denies cough and Denies dyspnea GI Denies change in stool character, Reports constipation, Denies diarrhea, Denies nausea and Denies vomiting Denies urinary frequency, Denies difficulty voiding and Denies dysuria Neuro Reports Normal hearing present, Denies confusion, Denies dizziness, Denies syncope and Denies weakness Psych Denies confusion Physical exam (Primary Care) Vital Signs: Last Vital Signs Pulse 73 02/11/24 12:36 BP 140/86 H 02/11/24 12:44 Pulse Ox 95 02/11/24 12:36 Oxygen Delivery Method Room Air 02/11/24 12:36 BMI result Body Mass Index 25.4 Tobacco/Smoking Status: Tobacco use Status Tobacco use date assessed 02/11/24 02/11/24 12:40 Patient Tobacco Use Status Never used Tobacco 02/11/24 12:49 e-Cigarette/Vaping Use Never Used 02/11/24 12:49 PHQ-9: PHQ-9 Score PHQ-9: Total score 4 02/11/24 12:40 Depression Screening Interpretation: Positive Thrive Assessment: Date of Thrive Assessment Date Thrive assessed 02/11/24 02/11/24 12:40 Currently or been in a relationship where the following occur: No concerns reported Const General: No confusion Orientation/consciousness: No confusion HENMT Head: Yes normocephalic Ears: external ears normal and TM's normal bilaterally Face and sinus: Yes normal facial exam Mouth: moist mucous membranes Throat: Yes tonsils normal Eyes Conjunctivae: conjunctivae normal Pupils: Equal, round and reactive pupils present and Pupil accommodation reflex normal Direct Ophthalmoscopy: normal light reflex Neck Neck: No lymphadenopathy Thyroid: Thyroid normal Chest Chest palpation & inspection: normal inspection of the chest Resp Effort & Inspection: normal respiratory effort and no audible wheezes Auscultation: clear to auscultation bilaterally, no crackles, no wheezes and lung sounds not diminished Cardio Rate: regular rate Rhythm: regular rhythm Peripheral pulses: radial pulses present and dorsalis pedis present GI Palpation (GI): no masses Auscultation: normal bowel sounds and normoactive bowel sounds Rectal Exam - Female: deferred Skin General skin exam: no rashes or lesions noted Rashes: no rashes Neuro General: No confusion Cranial nerves: Yes Equal, round and reactive pupils present and Yes Normal hearing present Cognition (Neuro): normal cognition Gait exam (Neuro): Normal gait present Motor exam (neuro): 5/5 motor strength present throughout Deep tendon reflexes (DTR's): Right brachioradialis reflex intensity grade: 2+, Left brachioradialis reflex intensity grade: 2+, Right patellar reflex intensity grade: 2+ and Left patellar reflex intensity grade: 2+ Extrem General: No edema Coding Level of Care Code Est Pt Prev Care 40-64y(86292) Diagnoses Annual physical exam Z00.00 Primary hypertension I10 Hypertension type: primary hypertension Gastroesophageal reflux disease, unspecified whether esophagitis present K21.9 Esophagitis presence: esophagitis presence not specified Hypercholesterolemia E78.00 Hypercalcemia E83.52 Asymmetrical hearing loss H91.8X3 Costochondritis M94.0 Assessment & Plan Assessment & Plan (1) Annual physical exam: Code(s): Z00.00 - Encounter for general adult medical examination without abnormal f indings Category: Medical Plan: Patient is advised to eat healthy, keep well hydrated, keep active and have adequate sleep. (2) HTN (hypertension): Code(s): I10 - Essential (primary) hypertension Category: Medical Qualifiers: Hypertension type: primary hypertension Qualified Code(s): I10 - Es sential (primary) hypertension Plan: Continue with blood pressure medication. Decrease salt intake and exercise patient is on lisinopril 20 mg once a day (3) GERD (gastroesophageal reflux disease): Code(s): K21.9 - Gastro-esophageal reflux disease without esophagitis Category: Medical Qualifiers: Esophagitis presence: esophagitis presence not specified Qualified Code(s): K21.9 - Gastro-esophageal reflux disease without esophagitis Plan: Avoid the foods that causes that usually spicy foods, tomato products, juices, coffee, soda and foods that your sensitive to. After eating do not lie down, allow 3-4 hours before in lie down. And keep the head of bed above 30 degrees to avoid the acid from going up. (4) Hypercholesterolemia: Code(s): E78.00 - Pure hypercholesterolemia, unspecified Category: Medical Plan: Avoid fried foods, chicken skin, eggs, butter margarine, pastries and meat. Be it pork or beef they have a lot of cholesterol on simvastatin 5 mg at bedtime LDL goal of less than 130 and triglyceride of less than 150 (5) Hypercalcemia: Code(s): E83.52 - Hypercalcemia Category: Medical Plan: Discussion about calcium containing foods and medication will have to discontinue and will retest (6) Asymmetrical hearing loss: Code(s): H91.8X3 - Other specified hearing loss, bilateral Category: Medical Plan: Referral to ENT done (7) Costochondritis: Comment: Musculoskeletal right side of the chest January 2022, stress test 2020- Code(s): M94.0 - Chondrocostal junction syndrome [[place]] Category: Medical Plan: reassurance Orders: Orders Calcium, Ionized Today E83.52 - Hypercalcemia Calcium Today E83.52 - Hypercalcemia Parathyroid Hormone Intact Today E83.52 - Hypercalcemia Referrals Ear/Nose/Throat Referral H91.8X3 - Other specified hearing loss, bilateral Medications: Changed From lisinopril 20 mg PO DAILY 90 days 90 tabs 2RF I10 - Essential (primary) hypertension To lisinopril 30 mg PO DAILY 90 tabs 2RF 90 days I10 - Essential (primary) hypertension Refilled simvastatin 5 mg PO BEDTIME 90 tabs 1RF E78.00 - Pure hypercholesterolemia, unspecified ascorbic acid (vitamin C) (Vitamin C) 500 mg PO DAILY 90 tabs 2RF E83.52 - Hypercalcemia
[2024-02-11 12:36] VITALS: BP 142/90; PULSE 73; O2SAT 95; BMI 25.4
[2024-02-11 12:44] VITALS: BP 140/86
== END 2024-02-11 13:05 | disposition home or self-care (01) ==
LOC: HO.HMCH 12:17
PROVIDERS: PCP Internal Medicine; Visit Provider Internal Medicine
DX: Z00.00 Encounter for general adult medical examination without abnormal findings (principal); I10 Essential (primary) hypertension; K21.9 Gastro-esophageal reflux disease without esophagitis; E78.00 Pure hypercholesterolemia, unspecified; E83.52 Hypercalcemia; H91.8X3 Other specified hearing loss, bilateral; M94.0 Chondrocostal junction syndrome [Tietze]

== ENCOUNTER 2024-04-21 10:58 | Outpatient (REF) | payer OTHER, SELFPAY | END 2024-04-21 10:59 | disposition home or self-care (01) | LOC: HO.MAMMO 10:58 | PROVIDERS: PCP Internal Medicine; Visit Provider Internal Medicine | DX: Z12.31 Encounter for screening mammogram for malignant neoplasm of breast (principal) | CPT/HCPCS: 77063; 77067 ==

== ENCOUNTER → 2024-04-21 11:15 | Outpatient (BNV) | payer OTHER, SELFPAY | PROVIDERS: PCP Internal Medicine; Visit Provider Internal Medicine | DX: Z12.31 Encounter for screening mammogram for malignant neoplasm of breast (principal) | CPT/HCPCS: 77063; 77067 ==

== ENCOUNTER 2024-06-13 09:05 | Outpatient (REF) | payer OTHER, SELFPAY ==
[2024-06-13 10:51] LABS: Calcium 9.6 mg/dL (8.4-10.2)
[2024-06-13 11:00] LABS: Parathyroid Hormone Intact 74.8 pg/mL (8.7-77.1)
[2024-06-14 11:17] LABS: Calcium, Ionized 5.3 mg/dL (4.7-5.5)
== END 2024-06-13 09:06 | disposition home or self-care (01) ==
LOC: HO.LAB 09:05
PROVIDERS: PCP Internal Medicine; Visit Provider Internal Medicine
DX: E83.52 Hypercalcemia (principal)
CPT/HCPCS: 36415; 82310; 82330; 83970

== ENCOUNTER 2024-06-14 09:34 | Outpatient (AMB) | payer OTHER, SELFPAY ==
[2024-06-14 09:37] VITALS: BP 142/72; PULSE 61; TEMP 36.3; O2SAT 99; BMI 25.2
--- NOTE | 2024-06-14 09:37 | MHC.PC.OV ---
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 Accompanied by: Self / Same As Patient Allergies No Known Allergies [No Known Allergies*] Allergy (Verified 06/14/24 09:58) Tobacco use date assessed: 06/14/24 Dental Screening Dental Screen Date: 06/14/24 Did you have a dental visit in the last 12 months?: Yes Did you have a dental problem in the last 6 months where you did not have access to dental care?: No Was dental information given to patient?: Patient has dentist [facility] Medical History (Updated 02/11/24 @ 12:52 by Han Marcano MD) Costochondritis Chest pain Viral upper respiratory illness Colon cancer screening Hearing loss Exposure to COVID-19 virus Headache Anemia HTN (hypertension) Special needs due to hearing impairment of right ear GERD (gastroesophageal reflux disease) Iron deficiency anemia Allergic rhinitis Anxiety and depression Cataract Hypokalemia Chest pain Hearing impaired Closed left ankle fracture Surgical History Hx of colonoscopy History of section Family History Brother Colon cancer Father Myocardial infarct Father Hypertension CVD (cardiovascular disease) Mother Hypertension Sister Aneurysm Brother Acute CVA (cerebrovascular accident) Son No problems noted. Son No problems noted. Daughter No problems noted. 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 1. Little interest or pleasure in doing things: not at all 2. Feeling down, depressed, or hopeless: not at all 3. Trouble falling or staying asleep, or sleeping too much: not at all 4. Feeling tired or having little energy: not at all 5. Poor appetite or overeating: not at all 6. Feeling bad about yourself - or that you are a failure or have let yourself or your family down: not at all 7. Trouble concentrating on things, such as reading the newspaper or watching television: not at all 8. Moving or speaking so slowly that other people could have noticed. Or the opposite - being so fidgety or restless that you have been moving around a lot more than usual: not at all 9. Thoughts that you would be better off or of hurting yourself in some way: not at all Total score: 0 Depression Screening Interpretation: Negative Depression Screening Done: Yes 22166 - PHQ-9 Billing: Yes Source: Developed by Drs. Max Russell, Josie Milligan, Haroon Dumont and colleagues, with an educational gabino from [employer]. Thrive Questionnaire Date Thrive assessed: 06/14/24 I am a: Patient What is your living situation today?: I have a steady place to live Within the past 12 months, did the food you bought not last and you didn't have the money to get more?: Never true Within the past 12 months, did you worry whether your food would run out before you got money to buy more?: Never true Do you have trouble paying for medicines?: No Do you have trouble getting transportation to medical appointments?: No Do you have trouble paying your heating and electricity bill?: No Do you have trouble taking care of your child, family member or friend?: No Do you have trouble with day-to-day activities such as bathing, preparing meals, shopping, managing finances, etc.?: No Are you currently unemployed and looking for a job?: No Are you interested in more education?: No Please select the resources that you would like help with: None Currently or been in a relationship where the following occur: No concerns reported THRIVE Score: 0 AUDIT C Alcohol Use Questionnaire (AUDIT-C) 1. How often do you have a drink containing alcohol?: Never Total Score: 0 JAVIER-7 AMB Questionnaire JAVIER-7 Date JAVIER - 7 assessed: 06/14/24 Feeling nervous, anxious, or on edge: 1 = Several days Not being able to stop or control worryin = Not at all Worrying too much about different things: 0 = Not at all Trouble relaxin = Not at all Being so restless that it is hard to sit still: 0 = Not at all Becoming easily annoyed or irritable: 0 = Not at all Feeling afraid as if something awful might happen: 0 = Not at all Total JAVIER-7 score (0-4 normal; 5-9 mild; 10-14 moderate; 15-21 severe): 1 Source: Developed by Drs. Max Russell, Josie Milligan, Haroon Dumont and colleagues, with an educational gabino from [employer]. JAVIER-7 Assessment Billing JAVIER-7 Assessment Tool: JAVIER-7 Assessment 49242 Physical exam (Primary Care) Vital Signs: Last Vital Signs Temp 97.3 F 06/14/24 09:37 Pulse 61 06/14/24 09:37 BP 142/72 H 06/14/24 09:37 Pulse Ox 99 06/14/24 09:37 Oxygen Delivery Method Room Air 06/14/24 09:37 BMI result Body Mass Index 25.2 Tobacco/Smoking Status: Tobacco use Status Tobacco use date assessed 06/14/24 06/14/24 10:05 Patient Tobacco Use Status Never used Tobacco 06/14/24 09:41 e-Cigarette/Vaping Use Never Used 06/14/24 09:41 PHQ-9: PHQ-9 Score PHQ-9: Total score 0 06/14/24 09:41 Depression Screening Interpretation: Negative Thrive Assessment: Date of Thrive Assessment Date Thrive assessed 06/14/24 06/14/24 09:41 Currently or been in a relationship where the following occur: No concerns reported Const General: alert; No acute distress Eyes Conjunctivae: conjunctivae normal Resp Auscultation: clear to auscultation bilaterally Cardio Rate: regular rate Rhythm: regular rhythm GI Inspection: Yes normal to inspection Extrem General: Yes normal to inspection and No edema Coding Level of Care Code Est Pt Level 4 (09491) Diagnoses Primary hypertension I10 Hypertension type: primary hypertension Gastroesophageal reflux disease, unspecified whether esophagitis present K21.9 Esophagitis presence: esophagitis presence not specified Hypercholesterolemia E78.00 Situational depression F43.21 Hypercalcemia E83.52 Additional Codes JAVIER-7 Assessment Billing - JAVIER-7 Assessment Tool: JAVIER-7 Assessment 94806 ([id number]) PHQ-9 - 79176 - PHQ-9 Billing: Yes ([id number]) Assessment & Plan Assessment & Plan (1) HTN (hypertension): Code(s): I10 - Essential (primary) hypertension Category: Medical Qualifiers: Hypertension type: primary hypertension Qualified Code(s): I10 - Essential (primary) hypertension Plan: Continue with blood pressure medication. Decrease salt intake and exercise patient on lisinopril 30 mg once a day (2) GERD (gastroesophageal reflux disease): Code(s): K21.9 - Gastro-esophageal reflux disease without esophagitis Category: Medical Qualifiers: Esophagitis presence: esophagitis presence not specified Qualified Code(s): K21.9 - Gastro-esophageal reflux disease without esophagitis Plan: Avoid the foods that causes that usually spicy foods, tomato products, juices, coffee, soda and foods that your sensitive to. After eating do not lie down, allow 3-4 hours before in lie down. And keep the head of bed above 30 degrees to avoid the acid from going up. (3) Hypercholesterolemia: Code(s): E78.00 - Pure hypercholesterolemia, unspecified Category: Medical Plan: Avoid fried foods, chicken skin, eggs, butter margarine, pastries and meat. Be it pork or beef they have a lot of cholesterol takes simvastatin 5 mg at bedtime. Blood work last done in 01/31/2024. (4) Situational depression: Code(s): F43.21 - Adjustment disorder with depressed mood Category: Medical Plan: Stable (5) Hypercalcemia: Code(s): E83.52 - Hypercalcemia Category: Medical Plan: Resolved Plan History of Present Illness The patient is a 63-year-old female presenting with a follow-up for hypertension management. She has a history of essential hypertension inadequately controlled on lisinopril 30 mg once daily. Blood work from January 2023 indicated normal results with concern over previously elevated calcium, which was resolved on repeat testing. Her renal function, electrolytes, and liver function tests were normal, and hypercholesterolemia was well-managed with simvastatin 5 mg at bedtime. Her current visit focuses on addressing the inadequate hypertension control. Despite compliance with medication, her blood pressure remains elevated, prompting a reconsideration of her current prescription. Additionally, the patient is noted to have GERD and depression, both of which are currently described as stable, without specific intervention discussed during this visit. Preventive screenings such as colonoscopy and mammogram are up-to-date. Health Maintenance - Colonoscopy updated in May 2023 with a 10-year clear interval. - Mammogram scheduled for April 2024. - Discussed importance of monitoring salt intake, with a focus on reducing added salt in the diet. Social History - Discussed dietary practices, with patient reporting no added salt in her diet, even during egg preparation. Review of Systems - Genitourinary: Denies any issues with urination, including burning sensation. Physical Exam Results - Labs: January 2023 blood work showed normal electrolytes, renal function, normal sugar levels, and resolved elevated calcium on repeat testing. Cholesterol was within normal limits. Plan Hypertension management will be addressed by discontinuing lisinopril 30 mg and initiating a combination antihypertensive medication to be taken twice daily for better regulation. I have submitted the new prescription to [facility] pharmacy. GERD and hypercholesterolemia management remains unchanged, with the patient continuing on simvastatin 5 mg nightly. Comprehensive dietary advice regarding salt intake has been confirmed. A follow-up appointment is planned for September 23, 2023. Patient was informed and verbally consented to the use of an ambient scribe for clinic note documentation during this visit. Discussion Notes I discussed the management plan for her hypertension with the patient, including the change to a combination antihypertensive medication for better control. I informed her of sending the prescription to her pharmacy and advised taking the new medication twice daily. The importance of maintaining her current dietary restrictions was emphasized. The potential for the new treatment to enhance blood pressure control was explained. We also reviewed her stable conditions, GERD, hypercholesterolemia, and depression, reiterating the importance of adherence to existing treatment plans. A follow-up discussion is planned for September 23, 2023, to assess progress. Patient Instructions - Discontinue lisinopril 30 mg. Start Lisinopril 20 mg/Hydrochlorothiazide 12.5 mg BID - Start the new blood pressure medication as prescribed, twice daily. - Continue taking simvastatin 5 mg at bedtime for cholesterol management. - Monitor and minimize salt intake in your diet. - Follow up with me on September 23, 2023. Medications: New lisinopril-hydrochlorothiazide 20-12.5 mg 1 tab PO BID 60 tabs 3RF I10 - Essential (primary) hypertension Discontinued lisinopril Discontinued Reason: Doctor's Order 30 mg PO DAILY 90 days 90 tabs 2RF I10 - Essential (primary) hypertension
== END 2024-06-14 11:15 | disposition home or self-care (01) ==
PROVIDERS: PCP Internal Medicine; Visit Provider Internal Medicine
DX: I10 Essential (primary) hypertension (principal); K21.9 Gastro-esophageal reflux disease without esophagitis; E78.00 Pure hypercholesterolemia, unspecified; F43.21 Adjustment disorder with depressed mood; E83.52 Hypercalcemia

== ENCOUNTER → 2024-06-14 09:34 | Outpatient (BNVA) | payer OTHER, SELFPAY | PROVIDERS: PCP Internal Medicine; Visit Provider Internal Medicine | DX: I10 Essential (primary) hypertension (principal); K21.9 Gastro-esophageal reflux disease without esophagitis; E78.00 Pure hypercholesterolemia, unspecified; F43.21 Adjustment disorder with depressed mood; E83.52 Hypercalcemia | CPT/HCPCS: 96127; 99212 ==

== ENCOUNTER 2024-09-22 09:16 | Outpatient (AMB) | payer OTHER, SELFPAY ==
--- NOTE | 2024-09-22 09:18 | MHC.PC.OV ---
Vital Signs 09/22/24 09:20 Height 5 ft Weight 132 lb 4 oz BMI 25.8 BP 132/76 Blood Pressure Location Lt brachial Position Sitting Respiration 18 Pulse 67 Pulse Source Pulse Oximeter Temp 96 F L Pulse Oximetry (%) 96 Oxygen Delivery Method Room Air Intake Visit Reasons: hypercalcemia, HTN Casino Floor Supervisor: Present Accompanied by: Self / Same As Patient Allergies No Known Allergies [No Known Allergies*] Allergy (Verified 09/22/24 09:19) Medication List - Last Reconciled 09/22/24 by Han Marcano MD ascorbic acid (vitamin C) (Vitamin C) 500 mg PO DAILY blood pressure monitor (Blood Pressure Kit) As directed ferrous sulfate 325 mg PO DAILY hydrocortisone 2.5% (Proctosol HC) 1 appl AL BID-QID PRN lisinopril-hydrochlorothiazide 20-12.5 mg 1 tab PO BID simvastatin 5 mg PO BEDTIME Tobacco use date assessed: 09/22/24 Dental Screening Dental Screen Date: 09/22/24 [facility] Medical History (Updated 02/11/24 @ 12:52 by Han Marcano MD) Costochondritis Chest pain Viral upper respiratory illness Colon cancer screening Hearing loss Exposure to COVID-19 virus Headache Anemia HTN (hypertension) Special needs due to hearing impairment of right ear GERD (gastroesophageal reflux disease) Iron deficiency anemia Allergic rhinitis Anxiety and depression Cataract Hypokalemia Chest pain Hearing impaired Closed left ankle fracture Surgical History Hx of colonoscopy History of section Family History Brother Colon cancer Father Myocardial infarct Father Hypertension CVD (cardiovascular disease) Mother Hypertension Sister Aneurysm Brother Acute CVA (cerebrovascular accident) Son No problems noted. Son No problems noted. Daughter No problems noted. Social History (Updated 02/11/24 @ 12:49 by Han Marcano MD) Housing: Apartment Alcohol intake: current Alcohol intake frequency: holidays/special occasions only Comment: holiday sips Patient Tobacco Use Status: Never used Tobacco e-Cigarette/Vaping Use: Never Used Second Hand Smoke Exposure: No service: No Current occupational status: employed Current occupation: [employer] ([employer]) Current occupational exposures/hazards: No Cognitive needs: No Hearing needs: No Vision needs: Yes Questionnaire PHQ-9 Over the last 2 weeks, how often have you been bothered by any of the following problems? 1. Little interest or pleasure in doing things: not at all 2. Feeling down, depressed, or hopeless: several days 3. Trouble falling or staying asleep, or sleeping too much: several days 4. Feeling tired or having little energy: several days 5. Poor appetite or overeating: not at all 6. Feeling bad about yourself - or that you are a failure or have let yourself or your family down: not at all 7. Trouble concentrating on things, such as reading the newspaper or watching television: not at all 8. Moving or speaking so slowly that other people could have noticed. Or the opposite - being so fidgety or restless that you have been moving around a lot more than usual: not at all 9. Thoughts that you would be better off or of hurting yourself in some way: not at all Total score: 3 Depression Screening Interpretation: Positive Depression Screening Done: Yes Source: Developed by Drs. Max Russell, Josie Milligan, Haroon Dumont and colleagues, with an educational gabino from [employer]. Thrive Questionnaire Date Thrive assessed: 09/15/24 I am a: Patient What is your living situation today?: I have a steady place to live Within the past 12 months, did the food you bought not last and you didn't have the money to get more?: Never true Within the past 12 months, did you worry whether your food would run out before you got money to buy more?: Never true Do you have trouble paying for medicines?: No Do you have trouble getting transportation to medical appointments?: No Do you have trouble paying your heating and electricity bill?: No Do you have trouble taking care of your child, family member or friend?: No Do you have trouble with day-to-day activities such as bathing, preparing meals, shopping, managing finances, etc.?: No Are you currently unemployed and looking for a job?: No Are you interested in more education?: No Please select the resources that you would like help with: None Currently or been in a relationship where the following occur: No concerns reported THRIVE Score: 0 AUDIT C Alcohol Use Questionnaire (AUDIT-C) 1. How often do you have a drink containing alcohol?: Never 3. How often do you have six or more drinks on one occasion?: Never Total Score: 0 JAVIER-7 AMB Questionnaire JAVIER-7 Date JAVIER - 7 assessed: 06/14/24 Feeling nervous, anxious, or on edge: 0 = Not at all Not being able to stop or control worryin = Not at all Worrying too much about different things: 0 = Not at all Trouble relaxin = Not at all Being so restless that it is hard to sit still: 0 = Not at all Becoming easily annoyed or irritable: 0 = Not at all Feeling afraid as if something awful might happen: 0 = Not at all Total JAVEIR-7 score (0-4 normal; 5-9 mild; 10-14 moderate; 15-21 severe): 0 Source: Developed by Drs. Max Russell, Josie Milligan, Haroon Dumont and colleagues, with an educational gabino from [employer]. Physical exam (Primary Care) Vital Signs: Last Vital Signs Temp 96 F L 09/22/24 09:20 Pulse 67 09/22/24 09:20 Resp 18 09/22/24 09:20 BP 132/76 09/22/24 09:20 Pulse Ox 96 09/22/24 09:20 Oxygen Delivery Method Room Air 09/22/24 09:20 BMI result Body Mass Index 25.8 Tobacco/Smoking Status: Tobacco use Status Tobacco use date assessed 09/22/24 09/22/24 09:24 Patient Tobacco Use Status Never used Tobacco 09/22/24 09:24 e-Cigarette/Vaping Use Never Used 09/22/24 09:24 PHQ-9: PHQ-9 Score PHQ-9: Total score 3 09/22/24 09:44 Depression Screening Interpretation: Positive Thrive Assessment: Date of Thrive Assessment Date Thrive assessed 09/15/24 09/22/24 09:24 Currently or been in a relationship where the following occur: No concerns reported Const General: alert; No acute distress Eyes Conjunctivae: conjunctivae normal Resp Auscultation: clear to auscultation bilaterally Cardio Rate: regular rate Rhythm: regular rhythm GI Inspection: Yes normal to inspection Extrem General: Yes normal to inspection and No edema Coding Level of Care Code Est Pt Level 4 (86503) Diagnoses Hypercholesterolemia E78.00 Primary hypertension I10 Hypertension type: primary hypertension Gastroesophageal reflux disease, unspecified whether esophagitis present K21.9 Esophagitis presence: esophagitis presence not specified Assessment & Plan Assessment & Plan (1) Hypercholesterolemia: Code(s): E78.00 - Pure hypercholesterolemia, unspecified Category: Medical Plan: Avoid fried foods, chicken skin, eggs, butter margarine, pastries and meat. Be it pork or beef they have a lot of cholesterol patient on simvastatin January 2025 last blood work LDL goal of less than 130 and triglyceride of less than 150 (2) HTN (hypertension): Code(s): I10 - Essential (primary) hypertension Category: Medical Qualifiers: Hypertension type: primary hypertension Qualified Code(s): I10 - Essential (primary) hypertension Plan: Continue with blood pressure medication. Decrease salt intake and exercise patient on lisinopril hydrochlorothiazide January 2025 renal function testing (3) GERD (gastroesophageal reflux disease): Code(s): K21.9 - Gastro-esophageal reflux disease without esophagitis Category: Medical Qualifiers: Esophagitis presence: esophagitis presence not specified Qualified Code(s): K21.9 - Gastro-esophageal reflux disease without esophagitis Plan: Avoid the foods that causes that usually spicy foods, tomato products, juices, coffee, soda and foods that your sensitive to. After eating do not lie down, allow 3-4 hours before in lie down. And keep the head of bed above 30 degrees to avoid the acid from going up. Plan History of Present Illness The patient is a 63-year-old female presenting for a follow-up visit. She has a history of hypertension, managed with lisinopril and hydrochlorothiazide, and her blood pressure is well-controlled despite occasional missed doses. Her gastroesophageal reflux disease (GERD) is under a management plan, and she is also managing hypercholesterolemia with simvastatin, achieving an LDL level of 124 mg/dL. The patient has a history of depression and reports intermittent chest pain, which is not associated with exertion. Preventative care is current, with recent colonoscopy and mammogram screenings. Health Maintenance - Colonoscopy: Last performed May 2023 - Mammogram: Last performed April 2024 - Shingles vaccination: Second dose received recently - Tetanus vaccination: Up to date - Lifestyle: Encouraged to drink 6-8 glasses of water daily and maintain a plant-based diet Social History - Employment: Currently working, experiences chest pain occasionally at work - Exercise: Limited physical activity, primarily related to work - Medication adherence: Occasionally forgets to take nighttime medication Review of Systems - Cardiovascular: Reports intermittent chest pain during movement, denies pain during exertion - Respiratory: Denies breathing difficulties Physical Exam - Cardiovascular: Blood pressure well-controlled - Respiratory: No swelling observed Results - Labs: LDL cholesterol level at 124 mg/dL - Labs: Electrolytes, renal function, blood sugar, and liver function normal Plan The patient's hypertension management includes lisinopril and hydrochlorothiazide, with a focus on maintaining adherence to prevent missed doses. Her hypercholesterolemia is controlled with simvastatin, and regular lipid monitoring is advised. For GERD, continuation of the current management plan is recommended. The patient should monitor her chest pain and report any changes, particularly if associated with exertion. Preventative care is up to date, with recent vaccinations and screenings completed. Lifestyle advice includes adequate hydration and a plant-based diet. Patient was informed and verbally consented to the use of an ambient scribe for clinic note documentation during this visit. Discussion Notes During the visit, we discussed the management of hypertension with lisinopril and hydrochlorothiazide, emphasizing the importance of medication adherence. We reviewed her cholesterol management with simvastatin, noting her LDL levels are within target range. The patient was advised to continue her GERD management plan and to monitor her chest pain, reporting any changes. Preventative care measures, including vaccinations and screenings, were confirmed as up to date. Lifestyle modifications were discussed, focusing on hydration and diet. Patient Instructions - Continue taking lisinopril and hydrochlorothiazide as prescribed. - Ensure to take all medications as directed, especially at night. - Maintain current cholesterol medication regimen and monitor levels regularly. - Follow GERD management plan. - Monitor chest pain and report any changes, especially if pain occurs during exertion. - Stay hydrated and follow a plant-based diet. - Keep up with preventative care appointments and vaccinations. Orders: Orders Complete Blood Count Auto Diff Today E78.00 - Pure hypercholesterolemia, unspecified Free T4 (Free Thyroxine) Today E78.00 - Pure hypercholesterolemia, unspecified Lipid Panel Today E78.00 - Pure hypercholesterolemia, unspecified Vitamin B12 and Folate Today E78.00 - Pure hypercholesterolemia, unspecified Magnesium Today E78.00 - Pure hypercholesterolemia, unspecified Comprehensive Met. Panel Today E78.00 - Pure hypercholesterolemia, unspecified Thyroid Stimulating Hormone Today E78.00 - Pure hypercholesterolemia, unspecified Vitamin D 25-OH Total Today E78.00 - Pure hypercholesterolemia, unspecified Referrals Construction Project Engineer Nutrition Referral E78.00 - Pure hypercholesterolemia, unspecified, I10 - Essential (primary) hypertension, K21.9 - Gastro-esophageal reflux disease without esophagitis Medications: Refilled lisinopril-hydrochlorothiazide 20-12.5 mg 1 tab PO BID 180 tabs 1RF I10 - Essential (primary) hypertension ferrous sulfate 325 mg PO DAILY 90 tabs 3RF E78.00 - Pure hypercholesterolemia, unspecified simvastatin 5 mg PO BEDTIME 90 tabs 1RF E78.00 - Pure hypercholesterolemia, unspecified ascorbic acid (vitamin C) (Vitamin C) 500 mg PO DAILY 90 tabs 2RF E83.52 - Hypercalcemia
[2024-09-22 09:20] VITALS: BP 132/76; PULSE 67; RESP 18; TEMP 35.5; O2SAT 96; BMI 25.8
== END 2024-09-22 09:55 | disposition home or self-care (01) ==
LOC: HO.HMCH 09:17
PROVIDERS: PCP Internal Medicine; Visit Provider Internal Medicine
DX: E78.00 Pure hypercholesterolemia, unspecified (principal); I10 Essential (primary) hypertension; K21.9 Gastro-esophageal reflux disease without esophagitis

== ENCOUNTER → 2024-09-22 09:16 | Outpatient (BNVA) | payer OTHER, SELFPAY | PROVIDERS: PCP Internal Medicine; Visit Provider Internal Medicine | DX: I10 Essential (primary) hypertension (principal); E78.00 Pure hypercholesterolemia, unspecified; K21.9 Gastro-esophageal reflux disease without esophagitis; E83.52 Hypercalcemia | CPT/HCPCS: 99212 ==

== ENCOUNTER → 2024-10-21 09:16 | Outpatient (BNV) | payer OTHER, SELFPAY | PROVIDERS: PCP Internal Medicine; Visit Provider Radiology Diagnostic Radiology | DX: M25.511 Pain in right shoulder (principal) | CPT/HCPCS: 73030 ==

== ENCOUNTER 2024-10-21 09:59 | Emergency (ER) | payer OTHER, SELFPAY ==
--- NOTE | ~2024-10-21 | XR_ITS ---
EXAMINATION: XR SHOULDER 2 OR MORE VIEWS RIGHT HISTORY: shoulder pain COMPARISON: There are no prior studies available for comparison. FINDINGS: Three views of the right shoulder are submitted. Osseous mineralization is normal. There is no fracture or dislocation. There is moderate osteoarthritis of the glenohumeral joint and severe osteoarthritis of the AC joint, with joint space narrowing and osteophyte formation. Calcifications adjacent to the greater tuberosity of the humerus are likely related to the rotator cuff. XR/XR shoulder RT min 2V IMPRESSION: Degenerative changes of the right shoulder as described. Probable rotator cuff calcifications. Electronically signed by: Max Malin MD 10/21/2024 10:24 AM EDT
[2024-10-21 10:03] VITALS: BP 115/53; PULSE 55; RESP 16; TEMP 36.4; O2SAT 100; BMI 28.3
--- NOTE | 2024-10-21 11:14 | ED.EXTPRO ---
HPI - Extremity Problem General Chief complaint: Extremity Injury, Upper Stated complaint: R Shoulder Pain No Injury Time Seen by Provider: 10/21/24 10:32 Source: patient Mode of arrival: ambulatory Limitations: no limitations History of Present Illness ED Provider: Amy March NP HPI Narrative: Patient is a 63-year-old female who presents emergency department for evaluation. She has been experiencing atraumatic right shoulder pain intermittent for many years. However has had increase in pain since yesterday without any notable injury. She has not tried any OTC medications more conservative treatment at home. Pain with movement of the arm/shoulder in any direction. Denies associated rashes, lesions, neck pain, numbness or tingling of the extremity. No chest pain. No abdominal pain nausea vomiting. Related Data Previous Rx's ?Medication ?Instructions ?Recorded blood pressure monitor (Blood #1 ea 05/15/22 Pressure Kit) hydrocortisone 2.5 % topical cream 1 appl AR BID-QID PRN hemorrhoids 07/08/23 with perineal applicator #30 grams (Proctosol HC) ascorbic acid (vitamin C) 500 mg 500 mg PO DAILY #90 tabs 09/22/24 tablet (Vitamin C) ferrous sulfate 325 mg (65 mg 325 mg PO DAILY #90 tabs 09/22/24 iron) tablet lisinopril 20 1 tab PO BID #180 tabs 09/22/24 mg-hydrochlorothiazide 12.5 mg tablet simvastatin 5 mg tablet 5 mg PO BEDTIME #90 tabs 09/22/24 ibuprofen 600 mg tablet 600 mg PO Q8H PRN pain #20 tabs 10/21/24 lidocaine 5 % topical patch 1 patch topical DAILY #15 ea 10/21/24 (Lidoderm) Allergies Allergy/AdvReac Type Severity Reaction Status Date / Time No Known Allergies (No Known Allergy Verified 10/21/24 10:03 Allergies*) Review of Systems Review of Systems: Yes all other systems are reviewed and are negative PMFSH Past Medical History Attestation statement: The following information was validated with the patient. Source: old records reviewed Medical History Costochondritis Chest pain Viral upper respiratory illness Colon cancer screening Hearing loss Exposure to COVID-19 virus Headache Anemia HTN (hypertension) Special needs due to hearing impairment of right ear GERD (gastroesophageal reflux disease) Iron deficiency anemia Allergic rhinitis Anxiety and depression Cataract Hypokalemia Chest pain Hearing impaired Closed left ankle fracture Surgical History Hx of colonoscopy History of section Family History Family History Brother Colon cancer Father Myocardial infarct Father Hypertension CVD (cardiovascular disease) Mother Hypertension Sister Aneurysm Brother Acute CVA (cerebrovascular accident) Son No problems noted. Son No problems noted. Daughter No problems noted. Social History Social History (Updated 02/11/24 @ 12:49 by Han Marcano MD) Housing: Apartment Alcohol intake: current Alcohol intake frequency: holidays/special occasions only Comment: holiday sips Patient Tobacco Use Status: Never used Tobacco e-Cigarette/Vaping Use: Never Used Second Hand Smoke Exposure: No Advance Directives: No Advance Directives Information Provided: Yes service: No Current occupational status: employed Current occupation: [employer] ([employer]) Current occupational exposures/hazards: No Cognitive needs: No Hearing needs: No Vision needs: Yes Physical Exam Vital Signs: Vital Signs: Last Vital Signs Temp 97.6 F 10/21/24 10:03 Pulse 55 10/21/24 10:03 Resp 16 10/21/24 10:03 BP 115/53 L 10/21/24 10:03 Pulse Ox 100 10/21/24 10:03 O2 Del Method Room Air 10/21/24 10:03 BMI result Body Mass Index 28.3 Appearance: Alert.?Oriented to person, place and time. No acute distress.?Normal affect. CVS: Heart sounds normal. Normal heart rate and rhythm.? Pulses normal.?? Respiratory: No respiratory distress.? Lung sounds clear to auscultation bilaterally?? Skin: Skin warm and dry.? Normal skin color.? Extremities: Right shoulder without erythema or warmth no rashes or lesions. No obvious deformity. Significantly decreased AROM with forward extension, overhead extension, external rotation. 2+ radial pulse. Neuro: Moves all extremities spontaneously. Sensation intact bilaterally. Ambulates with normal steady gait. Medical Decision Making Medical Decision Making MDM Narrative: Patient is a 63-year-old female past medical history of anemia, hypertension, GERD, allergic rhinitis, anxiety, depression, presenting for evaluation of acute on chronic right shoulder pain with a increase in pain since yesterday no recent precipitating injury. XR was obtained it does not show acute fracture dislocation she does however have extensive osteoarthritis and calcifications concerning for eventually calcific tendinitis of the shoulder. She has notable decreased AROM, endorsement of pain with any significant ranging. She is able to flex and extend the elbow without difficulty. Full range of motion to the neck. Advised course of NSAID, conservative treatment at home, Lidoderm patches, outpatient follow-up with PCP/Orthopedics and given strict return precautions Differential Diagnosis Differential Diagnoses: The differential diagnosis associated with the presentation includes (See narrative above) Independent Interpretation I performed an independent interpretation of an: Plain X-Ray (See narrative above) Radiology Impression Discussion of test interpretation with radiology: I have reviewed the radiologist's reading. Radiologist Impression: EXAMINATION: XR SHOULDER 2 OR MORE VIEWS RIGHT HISTORY: shoulder pain COMPARISON: There are no prior studies available for comparison. FINDINGS: Three views of the right shoulder are submitted. Osseous mineralization is normal. There is no fracture or dislocation. There is moderate osteoarthritis of the glenohumeral joint and severe osteoarthritis of the AC joint, with joint space narrowing and osteophyte formation. Calcifications adjacent to the greater tuberosity of the humerus are likely related to the rotator cuff. XR/XR shoulder RT min 2V IMPRESSION: Degenerative changes of the right shoulder as described. Probable rotator cuff calcifications. External Record Review External record reviewed: Outpatient record Prescription Management I considered prescription management with: Pain Medication Chronic Conditions Patient?s care impacted by: Other (See narrative above) Discharge Plan Discharge Clinical Impression: Osteoarthritis of right shoulder Qualifiers: Osteoarthritis type: unspecified Qualified Code(s): M19.011 - Primary osteoarthritis, right shoulder Calcific shoulder tendinitis Qualifiers: Laterality: right Qualified Code(s): M75.31 - Calcific tendinitis of right shoulder Patient Disposition: Home, Self-Care Instructions: Osteoarthritis (ED), Calcific Tendinitis (ED) Additional Instructions: Apply ice/heat for 10 15 minutes 4-6 times daily. Apply topical Lidoderm patch to area of most pain, leave on for 12 hours and remove for a 12 hour period to prevent skin irritation. You can take ibuprofen 200 mg, 3 tablets (600mg) every 6-8 hours as needed for pain, in addition to Tylenol 500 mg, 2 tablets (1,000mg) every 4-6 hours as needed for pain, but not to exceed 3 doses daily (3,000mg).? Follow-up with the primary care provider/Orthopedics, you may benefit from a course of physical therapy. I have provided contact information for the orthopedic office associated with our hospital. Return with any new or worsening symptoms or concerns Prescriptions: New lidocaine [Lidoderm] 5 % adhesive patch,medicated 1 patch topical DAILY Qty: 15 0RF Rx Instructions: leave on most painful area for up to 12 hrs ibuprofen 600 mg tablet 600 mg PO Q8H PRN (Reason: pain) Qty: 20 0RF No Action (DME) blood pressure monitor [Blood Pressure Kit] Kit See Rx Instructions .ROUTE .MEDSUPPLY Qty: 1 0RF Rx Instructions: As directed hydrocortisone [Proctosol HC] 2.5 % cream with perineal applicator 1 appl AR BID-QID PRN (Reason: hemorrhoids) Qty: 30 2RF lisinopril-hydrochlorothiazide 20-12.5 mg tablet 1 tab PO BID Qty: 180 1RF simvastatin 5 mg tablet 5 mg PO BEDTIME Qty: 90 1RF ferrous sulfate 325 mg (65 mg iron) tablet 325 mg PO DAILY Qty: 90 3RF ascorbic acid (vitamin C) [Vitamin C] 500 mg tablet 500 mg PO DAILY Qty: 90 2RF Referrals: Po,Han Mathew MD [Primary Care Provider, Internal Medicine] [facility] [Provider Group] Clinical Impression: Calcific shoulder tendinitis; Osteoarthritis of right shoulder Print Language: Guyanese
[2024-10-21 11:37] VITALS: BP 116/60; PULSE 56; RESP 16; TEMP 36.4; O2SAT 100
[2024-10-21 11:41] VITALS: BP 116/60; PULSE 56; RESP 16; TEMP 36.4; O2SAT 100
== END 2024-10-21 12:02 | disposition home or self-care (01) ==
PROVIDERS: Emergency Provider Emergency Medicine; PCP Internal Medicine
DX: M19.011 Primary osteoarthritis, right shoulder (principal); M75.31 Calcific tendinitis of right shoulder; M25.511 Pain in right shoulder
CPT/HCPCS: 73030; 99283

== ENCOUNTER 2024-10-28 08:08 | Outpatient (AMB) | payer OTHER, SELFPAY ==
--- NOTE | 2024-10-28 08:20 | A.OFFPC_ITS ---
Vital Signs 10/28/24 08:21 Height 5 ft Weight 132 lb 6 oz BMI 25.8 BP 116/78 Blood Pressure Location Lt brachial Position Sitting Pulse 68 Pulse Source Pulse Oximeter Temp 97.1 F Temp Source Temporal Artery Scan Pulse Oximetry (%) 99 Oxygen Delivery Method Room Air Intake [place] [facility] [place] Shoulder Pain No Injury Allergies No Known Allergies (No Known Allergies*) Allergy (Verified 10/28/24 08:23) Tobacco use date assessed: 10/28/24 Dental Screening Dental Screen Date: 09/22/24 Did you have a dental visit in the last 12 months?: Yes Did you have a dental problem in the last 6 months where you did not have access to dental care?: No Was dental information given to patient?: Patient has dentist HPI HPI Comments History of Present Illness Details 63 y/o Female patient who presents to [facility] today for EDF. Past Medical History significant for anemia, hypertension, GERD, allergic rhinitis, anxiety, and depression. She was [place] [facility] [place] for an evaluation and treatment of Right Shoulder pain. Xray Right Shoulder showed: There is no fracture or dislocation. There is moderate osteoarthritis of the glenohumeral joint and severe osteoarthritis of the AC joint, with joint space narrowing and osteophyte formation. Today reports great improvement, less pain and has been using Ibuprofen with good results. She will be beginning Physical Therapy next week. [facility] Medical History Costochondritis Chest pain Viral upper respiratory illness Colon cancer screening Hearing loss Exposure to COVID-19 virus Headache Anemia HTN (hypertension) Special needs due to hearing impairment of right ear GERD (gastroesophageal reflux disease) Iron deficiency anemia Allergic rhinitis Anxiety and depression Cataract Hypokalemia Chest pain Hearing impaired Closed left ankle fracture Surgical History Hx of colonoscopy History of section Family History Brother Colon cancer Father Myocardial infarct Father Hypertension CVD (cardiovascular disease) Mother Hypertension Sister Aneurysm Brother Acute CVA (cerebrovascular accident) Son No problems noted. Son No problems noted. Daughter No problems noted. 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 1. Little interest or pleasure in doing things: not at all 2. Feeling down, depressed, or hopeless: several days 3. Trouble falling or staying asleep, or sleeping too much: several days 4. Feeling tired or having little energy: several days 5. Poor appetite or overeating: not at all 6. Feeling bad about yourself - or that you are a failure or have let yourself or your family down: not at all 7. Trouble concentrating on things, such as reading the newspaper or watching television: not at all 8. Moving or speaking so slowly that other people could have noticed. Or the opposite - being so fidgety or restless that you have been moving around a lot more than usual: not at all 9. Thoughts that you would be better off or of hurting yourself in some way: not at all Total score: 3 Depression Screening Interpretation: Positive Depression Screening Done: Yes Source: Developed by Drs. Max Russell, Josie Milligan, Haroon Dumont and colleagues, with an educational gabino from [employer]. Thrive Questionnaire Date Thrive assessed: 09/15/24 I am a: Patient What is your living situation today?: I have a steady place to live Within the past 12 months, did the food you bought not last and you didn't have the money to get more?: Never true Within the past 12 months, did you worry whether your food would run out before you got money to buy more?: Never true Do you have trouble paying for medicines?: No Do you have trouble getting transportation to medical appointments?: No Do you have trouble paying your heating and electricity bill?: No Do you have trouble taking care of your child, family member or friend?: No Do you have trouble with day-to-day activities such as bathing, preparing meals, shopping, managing finances, etc.?: No Are you currently unemployed and looking for a job?: No Are you interested in more education?: No Please select the resources that you would like help with: None Currently or been in a relationship where the following occur: No concerns reported THRIVE Score: 0 AUDIT C Alcohol Use Questionnaire (AUDIT-C) 1. How often do you have a drink containing alcohol?: Never 3. How often do you have six or more drinks on one occasion?: Never Total Score: 0 JAVIER-7 AMB Questionnaire JAVIER-7 Date JAVIER - 7 assessed: 06/14/24 Feeling nervous, anxious, or on edge: 0 = Not at all Not being able to stop or control worryin = Not at all Worrying too much about different things: 0 = Not at all Trouble relaxin = Not at all Being so restless that it is hard to sit still: 0 = Not at all Becoming easily annoyed or irritable: 0 = Not at all Feeling afraid as if something awful might happen: 0 = Not at all Total JAVIER-7 score (0-4 normal; 5-9 mild; 10-14 moderate; 15-21 severe): 0 Source: Developed by Drs. Max Russell, Josie Milligan, Haroon Dumont and colleagues, with an educational gabino from [employer]. Review of Systems Const All systems reviewed & are unremarkable except as noted in HPI and below Physical exam (Primary Care) Vital Signs: Last Vital Signs Temp 97.1 F 10/28/24 08:21 Pulse 68 10/28/24 08:21 BP 116/78 10/28/24 08:21 Pulse Ox 99 10/28/24 08:21 Oxygen Delivery Method Room Air 10/28/24 08:21 BMI result Body Mass Index 25.8 Tobacco/Smoking Status: Tobacco use Status Tobacco use date assessed 10/28/24 10/28/24 08:24 Patient Tobacco Use Status Never used Tobacco 10/28/24 08:24 e-Cigarette/Vaping Use Never Used 10/28/24 08:24 PHQ-9: PHQ-9 Score PHQ-9: Total score 3 10/28/24 08:27 Depression Screening Interpretation: Positive Thrive Assessment: Date of Thrive Assessment Date Thrive assessed 09/15/24 10/28/24 08:24 Currently or been in a relationship where the following occur: No concerns reported Const General: comfortable and no acute distress Nutritional Appearance: well nourished Orientation/consciousness: patient oriented x3 Neuro General: patient oriented x3, gait normal and moves all extremities Extrem Right upper extremity: shoulder/upper arm Details: normal to inspection and abnormal ROM Details: pain with active ROM and pain with passive ROM; no swelling, no crepitus and no deformity Left upper extremity: normal to inspection Coding Level of Care Code Est Pt Level 4 (06216) Diagnoses Primary osteoarthritis, right shoulder M19.011 Time Spent (min) 20 Assessment & Plan Assessment & Plan (1) Primary osteoarthritis, right shoulder: Code(s): M19.011 - Primary osteoarthritis, right shoulder Category: Medical Plan: Condition improving - she will be doing Physical therapy starting next week. Refilled Ibuprofen and Lido Patches as requested. Medications: Changed From ibuprofen 600 mg PO Q8H PRN 20 tabs 0RF pain M19.011 - Primary osteoarthritis, right shoulder To ibuprofen 600 mg PO Q8H 30 tabs 0RF pain M19.011 - Primary osteoarthritis, right shoulder Refilled lidocaine 5% (Lidoderm) leave on most painful area for up to 12 hrs 1 patch topical DAILY 15 ea 0RF M19.011 - Primary osteoarthritis, right shoulder
[2024-10-28 08:21] VITALS: BP 116/78; PULSE 68; TEMP 36.2; O2SAT 99; BMI 25.8
== END 2024-10-28 10:19 | disposition home or self-care (01) ==
LOC: HO.HMCH 08:09
PROVIDERS: PCP Internal Medicine; Visit Provider Nurse Practitioner Family
DX: M19.011 Primary osteoarthritis, right shoulder (principal)

== ENCOUNTER → 2024-10-28 08:08 | Outpatient (BNVA) | payer OTHER, SELFPAY | PROVIDERS: PCP Internal Medicine; Visit Provider Nurse Practitioner Family | DX: M19.011 Primary osteoarthritis, right shoulder (principal); Z13.31 Encounter for screening for depression | CPT/HCPCS: 99212 ==